=== PATIENT | female | born 1985 | race Caucasian/White ===

== ENCOUNTER 2017-05-21 12:32 | Emergency (ER) | payer MEDICAID, OTHER ==
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
[2017-05-21 15:11] VITALS: BP 127/62
[2017-05-21] MEDS ORDERED: HYDROCODONE/ACETAMINOPHEN 5-325 MG TABLET PO ONE (15:50)
== END 2017-05-21 15:59 | disposition home or self-care (01) ==
LOC: ER 12:32
DX: S93.401A Sprain of unspecified ligament of right ankle, initial encounter (principal); V89.2XXA Person injured in unspecified motor-vehicle accident, traffic, initial encounter; F17.210 Nicotine dependence, cigarettes, uncomplicated
CPT/HCPCS: 99406; 99283; 73610; 73630; L4350

== ENCOUNTER 2017-06-13 08:51 | Emergency (ER) | payer SELFPAY ==
[2017-06-13 09:13] VITALS: BP 101/80
[2017-06-13 09:31] LABS: ABSOLUTE BASOPHILS # (AUTO) 0.1 10^3/uL (0.0-0.2); ABSOLUTE EOSINOPHILS # (AUTO) 0.2 10^3/uL (0.0-0.6); BASOPHILS % (AUTO) 0.8 % (0-2); EOSINOPHILS % (AUTO) 1.3 % (0-6); HEMATOCRIT 46.3 % (36.0-47.0); HEMOGLOBIN 15.4 g/dL (12.0-15.5); LYMPHOCYTES % (AUTO) 22.5 % (13-45); MEAN CORPUSCULAR HEMOGLOBIN 30.5 pg (27.0-33.4); MEAN CORPUSCULAR HGB CONC 33.4 g/dL (32.0-36.0); MEAN CORPUSCULAR VOLUME 91 fl (80-97); MONOCYTES % (AUTO) 7.3 % (3-13); PLATELET COUNT 338 10^3/uL (150-450); RED BLOOD COUNT 5.06 10^6/uL (3.72-5.28); RED CELL DISTRIBUTION WIDTH 15.2 % (11.5-14.0); SEGMENTED NEUTROPHILS % (AUTO) 68.1 % (42-78); TOTAL CELLS COUNTED % (AUTO) 100 %; WHITE BLOOD COUNT 13.2 10^3/uL (4.0-10.5)
[2017-06-13 09:53] LABS: AMORPHOUS SEDIMENT,URINE TRACE /HPF; APPEARANCE,URINE SLIGHTLY-CLOUDY; BILIRUBIN,URINE NEGATIVE (NEGATIVE); COLOR,URINE YELLOW; GLUCOSE, URINE NEGATIVE (NEGATIVE); KETONES,URINE NEGATIVE (NEGATIVE); LEUKOCYTE ESTERASE,URINE NEGATIVE (NEGATIVE); NITRITE,URINE NEGATIVE (NEGATIVE); PROTEIN,URINE NEGATIVE (NEGATIVE); URINE SPECIFIC GRAVITY 1.004; UROBILINOGEN,URINE NEGATIVE mg/dL (<2.0)
[2017-06-13] MEDS ORDERED: KETOROLAC TROMETHAMINE 60 MG/2 ML SDV IM ONE (10:00)
--- NOTE | 2017-06-13 11:11 | RADIOLOGY REPORT (SQ) ---
EXAM DESCRIPTION: U/S NON OB PEL W/DOPPLER COMPLETED DATE/TIME: 06/13/2017 10:48 am REASON FOR STUDY: lower pelvic pain COMPARISON: None. TECHNIQUE: Dynamic and static grayscale images acquired of the pelvis via transabdominal approach an d recorded on PACS. Additional selected color Doppler and spectral images recorded. LIMITATIONS: None. FINDINGS: UTERUS: Contour normal. No mass. ENDOMETRIAL STRIPE: No focal or generalized thickening. No masses. CERVIX: No nabothian cysts. RIGHT OVARY AND DOPPLER: Ovary not visualized. LEFT OVARY AND DOPPLER: Normal size. No worrisome masses. Normal arterial vascular flow without evide nce for torsion. FREE FLUID: Small amount. OTHER: No other significant finding. MEASUREMENTS: UTERUS: 7.6 x 5.0 x 2.9 cm ENDOMETRIAL STRIPE: 6 mm RIGHT OVARY: Not visualized. LEFT OVARY: 2.5 x 1.6 x 1.6 cm IMPRESSION: NORMAL PELVIC ULTRASOUND BY TRANSABDOMINAL TECHNIQUE. TECHNICAL DOCUMENTATION: JOB ID: [id number] [employer]- All Rights Reserved Rev Reading location - IP/workstation name: [email or web address]
[2017-06-13] MEDS ORDERED: ACETAMINOPHEN 325 MG TABLET PO ONE (11:16)
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
== END 2017-06-13 11:27 | disposition left against medical advice (07) ==
LOC: ER 08:51
DX: R10.30 Lower abdominal pain, unspecified (principal); R11.2 Nausea with vomiting, unspecified; F17.200 Nicotine dependence, unspecified, uncomplicated; F12.10 Cannabis abuse, uncomplicated; D72.829 Elevated white blood cell count, unspecified; Z53.29 Procedure and treatment not carried out because of patient's decision for other reasons
CPT/HCPCS: 99284; 36415; 85025; 81025; 81001; 76856; 93976; J1885

== ENCOUNTER 2017-09-10 10:46 | Inpatient (IN) | payer SELFPAY ==
[2017-09-10] MEDS ORDERED: NALOXONE HCL INJ 2 MG/2 ML DISP.SYRIN ONE (10:59)
--- NOTE | 2017-09-10 11:13 | ER Document Report ---
ED General - General Mode of Arrival: Medic Information source: Parent, Emergency Med Personnel TRAVEL OUTSIDE OF THE [place] IN LAST 30 DAYS: No <RASTA CHIU - Last Filed: 09/10/17 18:47> <LISA STYLES - Last Filed: 09/10/17 18:50> - General Chief Complaint: Overdose Stated Complaint: UNRESPONSIVE Time Seen by Provider: 09/10/17 10:55 Notes: Patient is a 32 year old female with schizoaffective disorder and a history of polysubstance abuse presents to the emergency department via EMS after being found unresponsive. EMS states that they found in her trash can empty bottles of Cogentin, Tegretol and Gabapentin. Mother states that the patient has been in and out of [facility] this past month further stating that the patient is seeking help but feels that the medications that she has been previously prescribed is not helping. Patient's Gabapentin bottle was empty after being filled on 07/12/2017 for 120 40 mg tablets, 2 tablets at bedtime. Patient's Cogentin bottle was also empty after being filled on 08/28/2017 for 30 1mg tablets, 1 tablet daily. There are 2 tablets remaining of Carbamazepine, 52 tablets 200 mg. (RASTA CHIU) - Related Data Allergies/Adverse Reactions: No Known Allergies Allergy (Verified 06/13/17 08:56) Past Medical History - General Information source: Parent, Emergency Med Personnel Cannot obtain history due to: Altered mental status - Social History Family History: Reviewed & Not Pertinent Musculoskeletal Medical History: Reports Hx Musculoskeletal Trauma Psychiatric Medical History: Reports: Hx Bipolar Disorder, Hx Depression, Hx Schizophrenia Past Surgical History: Reports: Hx Gynecologic Surgery - Immunizations Hx Diphtheria, Pertussis, Tetanus Vaccination: Yes <RASTA CHIU - Last Filed: 09/10/17 18:47> - Social History Smoking Status: Current Every Day Smoker <LISA STYLES - Last Filed: 09/10/17 18:50> Review of Systems - Review of Systems -: Yes ROS unobtainable due to patient's medical condition <RASTA CHIU - Last Filed: 09/10/17 18:47> Physical Exam <RASTA CHIU - Last Filed: 09/10/17 18:47> <LISA STYLES - Last Filed: 09/10/17 18:50> - Vital signs Vitals: Pulse Ox 98 09/10/17 10:50 - Notes Notes: GENERAL: Minimally responsive. Does not follow commands, will withdraw minimally from noxious stimuli. HEAD: Normocephalic, atraumatic. EYES: Pupils equal, dilated, responds slowly to light. ENT: Oral mucosa dry, tongue midline. NECK: Full range of motion. Supple. Trachea midline. LUNGS: Clear to auscultation bilaterally, no wheezes, rales, or rhonchi. No respiratory distress. HEART: Regular rate and rhythm. No murmurs, gallops, or rubs. ABDOMEN: Soft. Non-distended. Bowel sounds present in all 4 quadrants. EXTREMITIES: Occasional spontaneous movement of all four extremities is seen although no intentional movement. No edema, radial and dorsalis pedis pulses 2/ 4 bilaterally. No cyanosis. NEUROLOGICAL: Does not follow commands. Will withdraw minimally from noxious stimuli, such as IV stick and sternal rub. GCS 6. PSYCH: Does not follow commands. SKIN: Warm, dry, normal turgor. No rashes or lesions noted. (RASTA CHIU) Course - Laboratory Result Diagrams: 09/10/17 10:53 09/10/17 10:53 <RASTA CHIU - Last Filed: 09/10/17 18:47> - Laboratory Result Diagrams: 09/10/17 10:53 09/10/17 10:53 <LISA STYLES - Last Filed: 09/10/17 18:50> - Re-evaluation Re-evalutation: 09/10/17 11:50 GCS is now E-3 V-2 M-5. Will turn head, open mouth and flutter eyes to name being called and shoulder rubbed. (RASTA CHIU) 09/10/17 12:58 Spoke with poison control, would like to have chemistries repeated every 4-6 hours from initial arrival to include liver enzymes, due to combination of medication she is high risk for seizures if she seizes treat with benzos or phenobarbital, repeat EKG approximately 6 hours from the first, otherwise give supportive care which is ongoing. Tegretol level should be checked and if it is elevated then continue to do serial levels until normal. Patient does have evidence of rhabdomyolysis, hydration will continue and Alfred catheter will remain in place. After repeated checks patient is becoming somewhat more alert, GCS is now greater than 9. We will still hold off on intubation. 09/10/17 13:16 Attempted to call the hospitalist, Dr. Neil is putting in a central line, he will call me back. 09/10/17 14:16 CBC shows slight leukocytosis of 13.8, no anemia, venous blood gas shows low pH is 7.28, chemistries show elevated potassium at 5.2 but no EKG changes, AST and ALT are somewhat elevated at 157 and 252 respectively, CK-MB elevated at 7204 consistent with rhabdo, urinalysis shows large blood on the dipstick but only 1 RBC again consistent with rhabdomyolysis. Acetaminophen, salicylates and alcohol are all undetectable. CT scan of the head shows no acute process. Tegretol level was elevated and will continue to be monitored. Patient continues to be hydrated, and outputting urine well. Patient has had repeated episodes of emesis which resolved with Zofran, patient while still not following commands will wake up and lean herself forward to vomit, she does awaken to verbal stimuli. GCS is 11. Discussed patient with Dr. Fair, agrees to admit to the ICU. (LISA STYLES) - Vital Signs Vital signs: Temp Pulse Resp BP Pulse Ox 98.6 F 111 H 20 131/102 H 96 09/10/17 18:37 09/10/17 18:37 09/10/17 18:37 09/10/17 18:37 09/10/17 18:37 - Laboratory Laboratory results interpreted by me: 09/10/17 09/10/17 09/10/17 10:53 10:53 10:53 WBC 13.8 H RDW 14.4 H Seg Neutrophils % 89.3 H Lymphocytes % 5.5 L Absolute Neutrophils 12.3 H VBG pH 7.28 L Potassium 5.2 H Glucose 124 H AST 157 H ALT 252 H Creatine Kinase CK-MB (CK-2) Urine Glucose (UA) Urine Blood Salicylates < 1.0 L Acetaminophen < 10 L Carbamazepine 09/10/17 09/10/17 09/10/17 10:53 10:53 10:53 WBC RDW Seg Neutrophils % Lymphocytes % Absolute Neutrophils VBG pH Potassium Glucose AST ALT Creatine Kinase 7204 H CK-MB (CK-2) 26.70 H Urine Glucose (UA) Urine Blood Salicylates Acetaminophen Carbamazepine > 20.0 H* 09/10/17 11:20 WBC RDW Seg Neutrophils % Lymphocytes % Absolute Neutrophils VBG pH Potassium Glucose AST ALT Creatine Kinase CK-MB (CK-2) Urine Glucose (UA) 50 H Urine Blood LARGE H Salicylates Acetaminophen Carbamazepine - EKG Interpretation by Me Additional EKG results interpreted by me: 09/10/17 14:19 EKG shows sinus rhythm at a rate of 92, normal axis, normal intervals, no ST segment elevations or depressions, isolated T-wave inversions noted in V2 per my interpretation. (LISA STYLES) Critical Care Note - Critical Care Note Total time excluding time spent on procedures (mins): 80 <LISA STYLES - Last Filed: 09/10/17 18:50> Discharge <RASTA CHIU - Last Filed: 09/10/17 18:47> - Discharge Admitting Provider: [facility] Unit Admitted: ICU <LISA STYLES - Last Filed: 09/10/17 18:50> - Discharge Clinical Impression: Suicide attempt Overdose Qualifiers: Encounter type: initial encounter Injury intent: intentional self-harm Qualified Code(s): T50.902A - Poisoning by unspecified drugs, medicaments and biological substances, intentional self-harm, initial encounter Gabapentin overdose Qualifiers: Encounter type: initial encounter Injury intent: intentional self-harm Qualified Code(s): T42.6X2A - Poisoning by other antiepileptic and sedative- hypnotic drugs, intentional self-harm, initial encounter Rhabdomyolysis Qualifiers: Rhabdomyolysis type: non-traumatic Qualified Code(s): M62.82 - Rhabdomyolysis Intentional carbamazepine overdose Qualifiers: Encounter type: initial encounter Qualified Code(s): T42.1X2A - Poisoning by iminostilbenes, intentional self-harm, initial encounter Condition: Critical Disposition: ADMITTED INPATIENT Scribe Attestation: 09/10/17 18:49 I personally performed the services described in the documentation, reviewed and edited the documentation which was dictated to the scribe in my presence, and it accurately records my words and actions. (LISA STYLES) Scribe Documentation - Scribe Written by Kayleenibe:: Koffi Truong, 09/10/2017 11:53 acting as scribe for :: Janice <RASTA CHIU - Last Filed: 09/10/17 18:47>
[2017-09-10] MEDS ORDERED: NORMAL SALINE 1000 ML 1,000 ML IV ONE ×3 (11:22→12:31)
[2017-09-10] MEDS ORDERED: ETOMIDATE INJ/PF 20 MG/10 ML SDV IV ONE (11:30)
[2017-09-10 11:31] LABS: ABSOLUTE LYMPHOCYTES (AUTO) 0.8 10^3/uL (0.5-4.7); ABSOLUTE MONOCYTES (AUTO) 0.7 10^3/uL (0.1-1.4); ABSOLUTE NEUT (AUTO) 12.3 10^3/uL (1.7-8.2); BASOPHILS % (AUTO) 0.2 % (0-2); HEMATOCRIT 40.3 % (36.0-47.0); HEMOGLOBIN 13.4 g/dL (12.0-15.5); LYMPHOCYTES % (AUTO) 5.5 % (13-45); MEAN CORPUSCULAR HEMOGLOBIN 30.7 pg (27.0-33.4); MEAN CORPUSCULAR HGB CONC 33.2 g/dL (32.0-36.0); MEAN CORPUSCULAR VOLUME 93 fl (80-97); PLATELET COUNT 196 10^3/uL (150-450); RED BLOOD COUNT 4.35 10^6/uL (3.72-5.28); RED CELL DISTRIBUTION WIDTH 14.4 % (11.5-14.0); SEGMENTED NEUTROPHILS % (AUTO) 89.3 % (42-78); TOTAL CELLS COUNTED % (AUTO) 100 %; WHITE BLOOD COUNT 13.8 10^3/uL (4.0-10.5)
[2017-09-10] MEDS ORDERED: VECURONIUM BROMIDE INJ 10 MG VIAL IV ONE (11:31)
[2017-09-10 11:39] LABS: ALANINE AMINOTRANSFERASE 252 U/L (9-52); ALKALINE PHOSPHATASE 54 U/L (38-126); ANION GAP 13 (5-19); ASPARTATE AMINO TRANSFERASE 157 U/L (14-36); BILIRUBIN,DIRECT 0.2 mg/dL (0.0-0.4); BILIRUBIN,TOTAL 0.2 mg/dL (0.2-1.3); BLOOD UREA NITROGEN 14 mg/dL (7-20); CARBON DIOXIDE 25 mmol/L (22-30); CHLORIDE 102 mmol/L (98-107); GLUCOSE 124 mg/dL (75-110); POTASSIUM 5.2 mmol/L (3.6-5.0); SODIUM 139.9 mmol/L (137-145); TOTAL PROTEIN 6.9 g/dL (6.3-8.2)
[2017-09-10 11:41] LABS: ACETAMINOPHEN < 10 ug/mL (10-30); ALCOHOL < 10 mg/dL (NONE DETECTED); SALICYLATE < 1.0 mg/dL (2.0-20.0)
[2017-09-10 11:42] LABS: VENOUS BLOOD BASE EXCESS -6.3 mmol/L; VENOUS BLOOD HCO3 20.1 mmol/L (20-32); VENOUS BLOOD PH 7.28 (7.30-7.42)
--- NOTE | 2017-09-10 11:57 | RADIOLOGY REPORT (SQ) ---
EXAM DESCRIPTION: CT HEAD WITHOUT COMPLETED DATE/TIME: 09/10/2017 11:45 am REASON FOR STUDY: unresponsive COMPARISON: CT brain 11/21/2008 TECHNIQUE: Axial images acquired through the brain without intravenous contrast. Images reviewed wi th bone, brain and subdural windows. Additional sagittal and coronal reconstructions were generated. Images stored on PACS. All CT scanners at this facility use dose modulation, iterative reconstruction, and/or weight based d osing when appropriate to reduce radiation dose to as low as reasonably achievable (ALARA). [facility]: Dose Right [facility]: CareDose [facility]: Dose Right [facility]: Teradose 4D [facility]: Adynxx RADIATION DOSE: CT Rad equipment meets quality standard of care and radiation dose reduction techniq ues were employed. CTDIvol: 53.2 mGy. DLP: 1124 mGy-cm. mGy. LIMITATIONS: None. FINDINGS: VENTRICLES: Normal size and contour. CEREBRUM: No masses. No hemorrhage. No midline shift. No evidence for acute infarction. Normal gra y/white matter differentiation. No areas of low density in the white matter. CEREBELLUM: No masses. No hemorrhage. No alteration of density. No evidence for acute infarction. EXTRAAXIAL SPACES: No fluid collections. No masses. ORBITS AND GLOBE: No intra- or extraconal masses. Normal contour of globe without masses. CALVARIUM: No fracture. PARANASAL SINUSES: No fluid or mucosal thickening. SOFT TISSUES: No mass or hematoma. OTHER: No other significant finding. IMPRESSION: NORMAL BRAIN CT WITHOUT CONTRAST. EVIDENCE OF ACUTE STROKE: NO. COMMENT: Quality ID # [id number]: Final reports with documentation of one or more dose reduction techniques (e.g., Automated exposure control, adjustment of the mA and/or kV according to patient size, use of iterative reconstruction technique) TECHNICAL DOCUMENTATION: JOB ID: [id number] [employer]- All Rights Reserved Reading location - IP/workstation name: [email or web address]
[2017-09-10 12:01] LABS: AMORPHOUS SEDIMENT,URINE TRACE /HPF; APPEARANCE,URINE TURBID; BILIRUBIN,URINE NEGATIVE (NEGATIVE); GLUCOSE, URINE 50 mg/dL (NEGATIVE); KETONES,URINE NEGATIVE (NEGATIVE); LEUKOCYTE ESTERASE,URINE NEGATIVE (NEGATIVE); NITRITE,URINE NEGATIVE (NEGATIVE); PROTEIN,URINE NEGATIVE (NEGATIVE); URINE SPECIFIC GRAVITY 1.023; UROBILINOGEN,URINE NEGATIVE mg/dL (<2.0)
[2017-09-10 12:02] LABS: COLOR,URINE DARK YELLOW
[2017-09-10] MEDS ORDERED: ONDANSETRON HCL INJ/PF 4 MG/2 ML SDV IV ONE ×2 (12:18→13:56)
[2017-09-10] MEDS ORDERED: ONDANSETRON HCL INJ/PF 4 MG/2 ML SDV ONE (12:18)
--- NOTE | 2017-09-10 13:18 | EKG REPORT ---
SEVERITY:- BORDERLINE ECG - SINUS RHYTHM PROBABLE LEFT ATRIAL ABNORMALITY : Confirmed by: Cherrie Isbell MD 10-Sep-2017 13:17:52
[2017-09-10] MEDS ORDERED: LORAZEPAM INJ 2 MG/1 ML VIAL ONE (13:52)
[2017-09-10] MEDS ORDERED: LORAZEPAM INJ 2 MG/1 ML VIAL IV ONE (13:56)
[2017-09-10] MEDS ORDERED: ONDANSETRON HCL INJ/PF 4 MG/2 ML SDV IV PRN (15:04)
[2017-09-10 15:43] LABS: URINE AMPHETAMINES SCREEN NEGATIVE; URINE BARBITURATES SCREEN NEGATIVE; URINE BENZODIAZEPINES SCREEN NEGATIVE; URINE COCAINE SCREEN NEGATIVE; URINE MARIJUANA (THC) SCREEN NEGATIVE; URINE METHADONE SCREEN NEGATIVE; URINE PHENCYCLIDINE SCREEN NEGATIVE
--- NOTE | 2017-09-10 15:47 | PSYCHOLOGICAL NOTE ---
Psych Note - Psych Note Psych Note: Reason for consult: overdose Patient is a 32 year old female with schizoaffective disorder presents to the emergency department via EMS after being found unresponsive. EMS states that they found in her trash can empty bottles of Cogentin, Tegretol and Gabapentin. Patient is currently unable to engage in evaluation. While patient is not intubated, patient is altered mental status Patient's mother, Cindy, discloses the patient is diagnosed schizoaffective bipolar type. She states that she has been inpatient 2 times this month each time being held for 1 week each. She reports that she knows the patient has been very frustrated with medications not working. Last night she was given her medications by her grandmother and went to bed. She disclosed that grandmother reports when she went to sleep the bedroom door was open however this morning when she got up the bedroom door was closed at which point they entered the room. She discloses they were unable to wake patient in a "bunch of old med bottles were in the trash." She reports the patient was discharged on Sunday from [facility] after her second 1 week admission. Diagnosis 295.70 (F25.0) schizoaffective disorder; bipolar type per history provided by mother Impression\\plan: Patient is recommended for IVC. It currently appears the patient intentionally overdosed on both medications after being frustrated with medication changes in medication not working. Patient was just released from [facility] on Sunday. Patient has been admitted. Patient will be reevaluated. Dr. Peres was consulted and the care management this patient; attending physician is agreement with her conditions and disposition
[2017-09-10] MEDS: NORMAL SALINE 1000 ML 1,000 ML IV PRN ×2 (16:20→20:46)
--- NOTE | 2017-09-10 17:39 | PDOC H&P ---
History of Present Illness Admission Date/PCP: 09/10/17 15:00 Patient complains of: Polysubstance overdose History of Present Illness: REGULO CASTAÑEDA is a 32 year old female with a past medical history of schizoaffective disorder and depression who was brought in by EMS after being found unresponsive. Patient's mother is in the bedside. According to the mother, patient was recently discharged from [facility] inpatient psych. Patient was diagnosed with schizoaffective disorder and her medication regimen has been recently adjusted. Patient reportedly improved after her medication changes and was discharged from [facility] 3 days ago. Patient's mom says that she stayed with her grandmom last night. She did report that patient had symptoms of hallucination in the past 2 days. This morning, patient was found unresponsive in her room. For empty bottles with her phone in the room including bottles for carbamazepine, duloxetine, benztropine in Neurontin. Patient was noted to be lethargic and was brought by EMS to the ER. In the ER, patient was initially noted to have a GCS of 6. There was initial plan to intubate her but she started waking up but was confused and agitated. Her GCS improved to 10. She vomited but was able to protect her airway hence intubation in the ED was deferred. Past Medical History Cardiac Medical History: Denies: Coronary Artery Disease, Myocardial Infarction, Hypertension Pulmonary Medical History: Denies: Asthma, Bronchitis, Chronic Obstructive Pulmonary Disease (COPD), Pneumonia Neurological Medical History: Denies: Seizures Musculoskeltal Medical History: Denies: Arthritis Psychiatric Medical History: Reports: Bipolar Disorder, Depression Hematology: Denies: Anemia Social History Smoking Status: Unknown if Ever Smoked Frequency of Alcohol Use: None Hx Recreational Drug Use: Yes Drugs: None Hx Prescription Drug Abuse: No Family History Family History: Reviewed & Not Pertinent Medication/Allergy Home Medications: Buspirone HCl [Buspar 10 mg Tablet] 10 mg PO Q12 09/10/17 Olanzapine [Zyprexa 5 mg Tablet] 5 mg PO QAM 09/10/17 Olanzapine [Zyprexa] 15 mg PO QHS 09/10/17 Allergies/Adverse Reactions: No Known Allergies Allergy (Verified 06/13/17 08:56) Review of Systems ROS unobtainable: Due to mental status Physical Exam Vital Signs: Temp Pulse Resp BP Pulse Ox 98.9 F 24 H 117/89 H 93 08/06/18 17:02 09/10/17 17:02 09/10/17 16:00 09/10/17 17:02 Intake & Output 09/09/17 09/10/17 09/11/17 06:59 06:59 06:59 Intake Total 1000 Balance 1000 General appearance: PRESENT: other - Patient appears lethargic but arousable. Head exam: PRESENT: atraumatic, normocephalic Eye exam: PRESENT: other - No nystagmus, dilated but slightly reactive pupils bilaterally Mouth exam: PRESENT: moist, tongue midline Neck exam: ABSENT: carotid bruit, JVD, lymphadenopathy, thyromegaly Respiratory exam: PRESENT: clear to auscultation jordan. ABSENT: rales, rhonchi, wheezes Cardiovascular exam: PRESENT: RRR Pulses: PRESENT: normal dorsalis pedis pul GI/Abdominal exam: PRESENT: normal bowel sounds, soft. ABSENT: distended, guarding, mass, organolmegaly, rebound, tenderness Rectal exam: PRESENT: deferred Extremities exam: PRESENT: full ROM. ABSENT: calf tenderness, clubbing, pedal edema Neurological exam: PRESENT: other - Patient is arousable, noncoherent, unable to follow instructions. No apparent unilateral weakness. Results Impressions: Head CT 09/10/17 11:22 IMPRESSION: NORMAL BRAIN CT WITHOUT CONTRAST. EVIDENCE OF ACUTE STROKE: NO. Assessment & Plan - Diagnosis (1) Acute encephalopathy Is this a current diagnosis for this admission?: Yes Plan: Patient has acute toxic encephalopathy likely secondary to ingestion of multiple medications including duloxetine, carbamazepine, benztropine and Neurontin. Poison control was consulted by ER provider. Carbamazepine toxicity confers increased risk for seizures. Patient will be continuously monitored for seizure. Ativan for agitation 1 mg every 4 as needed. Monitor EKGs every 6-8 hours for carbamazepine (Tegretol) and TCA (duloxetine) toxicity. Watch out for QRS prolongation. Plan is to administer bicarbonate ( 100-150 meqs) if QRS>100 ms. Check Tegretol level every 8 hours. (2) Rhabdomyolysis Qualifiers: Rhabdomyolysis type: non-traumatic Qualified Code(s): M62.82 - Rhabdomyolysis Is this a current diagnosis for this admission?: Yes Plan: Patient's CK significantly elevated at 7204. She has received 4 L of fluid bolus in the ER. Continue normal saline at 150 cc/h. (3) Schizoaffective disorder Is this a current diagnosis for this admission?: Yes Plan: Cycle also be consulted for further evaluation and recommendations. - Time Time Spent: 50 to 70 Minutes Critical Time spent with patient: 25-34 minutes - Inpatient Certification Medical Necessity: Need Close Monitoring Due to Risk of Patient Decompensation, Need For IV Fluids, Need for Neurological Checks, Risk of Complication if Not Cared For in Hospital
[2017-09-10] MEDS: LORAZEPAM INJ 2 MG/1 ML VIAL IV PRN (20:43)
[2017-09-10] MEDS: HEPARIN SOD (PORCINE) 5,000 UNIT/ML 1 ML SYRINGE SUBCUT SCH (22:56)
[2017-09-11] MEDS: LORAZEPAM INJ 2 MG/1 ML VIAL IV PRN ×3 (01:39→22:37)
[2017-09-11] MEDS: NORMAL SALINE 1000 ML 1,000 ML IV PRN ×4 (05:00→21:31)
[2017-09-11] MEDS: HEPARIN SOD (PORCINE) 5,000 UNIT/ML 1 ML SYRINGE SUBCUT SCH ×3 (05:02→21:32)
--- NOTE | 2017-09-11 09:28 | RADIOLOGY REPORT (SQ) ---
EXAM DESCRIPTION: CHEST SINGLE VIEW COMPLETED DATE/TIME: 09/11/2017 9:18 am REASON FOR STUDY: leucocytosis. wheezing bl bases. COMPARISON: None. EXAM PARAMETERS: NUMBER OF VIEWS: One view. TECHNIQUE: Single frontal radiographic view of the chest acquired. RADIATION DOSE: NA LIMITATIONS: None. FINDINGS: LUNGS AND PLEURA: No opacities, masses or pneumothorax. No pleural effusion. MEDIASTINUM AND HILAR STRUCTURES: No masses. Contour normal. HEART AND VASCULAR STRUCTURES: Heart normal in size. Normal vasculature. BONES: No acute findings. HARDWARE: None in the chest. OTHER: No other significant finding. IMPRESSION: NO ACUTE RADIOGRAPHIC FINDING IN THE CHEST. TECHNICAL DOCUMENTATION: JOB ID: [id number] [employer]- All Rights Reserved Reading location - IP/workstation name: [email or web address]
[2017-09-11] MEDS: LORAZEPAM INJ 2 MG/1 ML VIAL IV SCH ×6 (09:57→20:25)
[2017-09-11 10:32] LABS: ABSOLUTE EOSINOPHILS # (AUTO) 0.1 10^3/uL (0.0-0.6); ABSOLUTE LYMPHOCYTES (AUTO) 2.4 10^3/uL (0.5-4.7); ABSOLUTE MONOCYTES (AUTO) 0.9 10^3/uL (0.1-1.4); ABSOLUTE NEUT (AUTO) 5.5 10^3/uL (1.7-8.2); BASOPHILS % (AUTO) 0.5 % (0-2); EOSINOPHILS % (AUTO) 0.6 % (0-6); HEMATOCRIT 29.9 % (36.0-47.0); LYMPHOCYTES % (AUTO) 27.3 % (13-45); MEAN CORPUSCULAR HEMOGLOBIN 31.1 pg (27.0-33.4); MEAN CORPUSCULAR HGB CONC 34.3 g/dL (32.0-36.0); MEAN CORPUSCULAR VOLUME 91 fl (80-97); MONOCYTES % (AUTO) 9.7 % (3-13); PLATELET COUNT 157 10^3/uL (150-450); RED BLOOD COUNT 3.29 10^6/uL (3.72-5.28); RED CELL DISTRIBUTION WIDTH 14.2 % (11.5-14.0); SEGMENTED NEUTROPHILS % (AUTO) 61.9 % (42-78); TOTAL CELLS COUNTED % (AUTO) 100 %; WHITE BLOOD COUNT 8.9 10^3/uL (4.0-10.5)
[2017-09-11 10:32] LABS: APPEARANCE,URINE CLEAR; BILIRUBIN,URINE NEGATIVE (NEGATIVE); COLOR,URINE STRAW; GLUCOSE, URINE NEGATIVE (NEGATIVE); KETONES,URINE NEGATIVE (NEGATIVE); LEUKOCYTE ESTERASE,URINE NEGATIVE (NEGATIVE); NITRITE,URINE NEGATIVE (NEGATIVE); PROTEIN,URINE NEGATIVE (NEGATIVE); URINE SPECIFIC GRAVITY 1.005; UROBILINOGEN,URINE NEGATIVE mg/dL (<2.0)
[2017-09-11 10:33] LABS: ARTERIAL BLOOD BASE EXCESS 1.5 mmol/L; ARTERIAL BLOOD HCO3 26.5 mmol/L (20-26); ARTERIAL BLOOD O2 SATURATION 99.1 % (94-98); ARTERIAL BLOOD PCO2 43.3 mmHg (35-45); ARTERIAL BLOOD PH 7.41 (7.35-7.45); ARTERIAL BLOOD PO2 161.5 mmHg (80-100); ARTERIAL BLOOD TOTAL CO2 27.9 mmol/L (21-25)
[2017-09-11 10:34] LABS: HEMOGLOBIN 10.3 g/dL (12.0-15.5)
[2017-09-11 10:35] LABS: ARTERIAL BLOOD FIO2 2L
[2017-09-11 10:43] LABS: PARTIAL THROMBOPLASTIN TIME 31.9 SEC (23.5-35.8)
[2017-09-11 10:46] LABS: D-DIMER 1.36 ug/mL (0.00-0.50)
[2017-09-11 10:50] LABS: ALANINE AMINOTRANSFERASE 253 U/L (9-52); ALBUMIN 2.5 g/dL (3.5-5.0); ALKALINE PHOSPHATASE 50 U/L (38-126); ANION GAP 6 (5-19); ASPARTATE AMINO TRANSFERASE 262 U/L (14-36); BILIRUBIN,DIRECT 0.1 mg/dL (0.0-0.4); BILIRUBIN,TOTAL 0.4 mg/dL (0.2-1.3); BLOOD UREA NITROGEN 6 mg/dL (7-20); CALCIUM 7.8 mg/dL (8.4-10.2); CARBON DIOXIDE 26 mmol/L (22-30); CHLORIDE 107 mmol/L (98-107); GLUCOSE 81 mg/dL (75-110); LIPASE 26.6 U/L (23-300); SODIUM 138.8 mmol/L (137-145); TOTAL PROTEIN 4.8 g/dL (6.3-8.2)
[2017-09-11 10:54] LABS: POTASSIUM 3.4 mmol/L (3.6-5.0)
[2017-09-11 10:55] LABS: NT PRO BNP 1280 pg/mL (<125)
[2017-09-11 10:58] LABS: TROPONIN I < 0.012 ng/mL
[2017-09-11 11:06] LABS: FREE T4 (FREE THYROXINE) 1.16 ng/dL (0.78-2.19)
[2017-09-11 11:07] LABS: CREATINE KINASE 7777 U/L (30-135)
[2017-09-11 11:20] LABS: THYROID STIMULATING HORMONE 1.25 uIU/mL (0.47-4.68)
[2017-09-11 17:59] LABS: ALANINE AMINOTRANSFERASE 239 U/L (9-52); ALBUMIN 2.7 g/dL (3.5-5.0); ALKALINE PHOSPHATASE 53 U/L (38-126); ANION GAP 8 (5-19); ASPARTATE AMINO TRANSFERASE 239 U/L (14-36); BILIRUBIN,DIRECT 0.2 mg/dL (0.0-0.4); BILIRUBIN,TOTAL 0.4 mg/dL (0.2-1.3); BLOOD UREA NITROGEN 7 mg/dL (7-20); CALCIUM 8.3 mg/dL (8.4-10.2); CARBON DIOXIDE 24 mmol/L (22-30); CHLORIDE 109 mmol/L (98-107); GLUCOSE 78 mg/dL (75-110); POTASSIUM 3.7 mmol/L (3.6-5.0); SODIUM 140.8 mmol/L (137-145); TOTAL PROTEIN 5.1 g/dL (6.3-8.2)
[2017-09-11 18:09] LABS: TROPONIN I < 0.012 ng/mL
--- NOTE | 2017-09-11 22:35 | EKG REPORT ---
SEVERITY:- NORMAL ECG - SINUS RHYTHM : Confirmed by: Cherrie Isbell MD 11-Sep-2017 22:34:44
[2017-09-12 00:36] LABS: ALBUMIN 2.7 g/dL (3.5-5.0); ANION GAP 9 (5-19); BLOOD UREA NITROGEN 7 mg/dL (7-20); CARBON DIOXIDE 23 mmol/L (22-30); CHLORIDE 110 mmol/L (98-107); GLUCOSE 72 mg/dL (75-110); POTASSIUM 3.5 mmol/L (3.6-5.0); SODIUM 141.7 mmol/L (137-145); TOTAL PROTEIN 5.1 g/dL (6.3-8.2)
[2017-09-12 00:37] LABS: ALANINE AMINOTRANSFERASE 228 U/L (9-52); ALKALINE PHOSPHATASE 57 U/L (38-126); ASPARTATE AMINO TRANSFERASE 236 U/L (14-36); BILIRUBIN,DIRECT 0.2 mg/dL (0.0-0.4); BILIRUBIN,TOTAL 0.5 mg/dL (0.2-1.3)
[2017-09-12 00:51] LABS: TROPONIN I < 0.012 ng/mL
[2017-09-12] MEDS: LORAZEPAM INJ 2 MG/1 ML VIAL IV PRN ×2 (00:59→22:27)
[2017-09-12 04:16] LABS: ALANINE AMINOTRANSFERASE 208 U/L (9-52); ALBUMIN 2.6 g/dL (3.5-5.0); ALKALINE PHOSPHATASE 55 U/L (38-126); ANION GAP 9 (5-19); ASPARTATE AMINO TRANSFERASE 222 U/L (14-36); BILIRUBIN,DIRECT 0.2 mg/dL (0.0-0.4); BILIRUBIN,TOTAL 0.5 mg/dL (0.2-1.3); BLOOD UREA NITROGEN 8 mg/dL (7-20); CALCIUM 8.1 mg/dL (8.4-10.2); CARBON DIOXIDE 24 mmol/L (22-30); CHLORIDE 111 mmol/L (98-107); GLUCOSE 72 mg/dL (75-110); POTASSIUM 3.5 mmol/L (3.6-5.0); SODIUM 143.5 mmol/L (137-145); TOTAL PROTEIN 5.1 g/dL (6.3-8.2)
[2017-09-12] MEDS: HEPARIN SOD (PORCINE) 5,000 UNIT/ML 1 ML SYRINGE SUBCUT SCH ×3 (05:47→22:27)
[2017-09-12] MEDS: NORMAL SALINE 1000 ML 1,000 ML IV PRN ×2 (05:47→12:47)
[2017-09-12 08:53] LABS: ABSOLUTE BASOPHILS # (AUTO) 0.1 10^3/uL (0.0-0.2); ABSOLUTE EOSINOPHILS # (AUTO) 0.2 10^3/uL (0.0-0.6); ABSOLUTE LYMPHOCYTES (AUTO) 2.2 10^3/uL (0.5-4.7); ABSOLUTE MONOCYTES (AUTO) 0.8 10^3/uL (0.1-1.4); ABSOLUTE NEUT (AUTO) 4.1 10^3/uL (1.7-8.2); BASOPHILS % (AUTO) 1.1 % (0-2); EOSINOPHILS % (AUTO) 3.1 % (0-6); HEMATOCRIT 32.5 % (36.0-47.0); HEMOGLOBIN 11.1 g/dL (12.0-15.5); LYMPHOCYTES % (AUTO) 30.1 % (13-45); MEAN CORPUSCULAR HEMOGLOBIN 31.4 pg (27.0-33.4); MEAN CORPUSCULAR HGB CONC 34.2 g/dL (32.0-36.0); MEAN CORPUSCULAR VOLUME 92 fl (80-97); MONOCYTES % (AUTO) 11.1 % (3-13); PLATELET COUNT 175 10^3/uL (150-450); RED BLOOD COUNT 3.54 10^6/uL (3.72-5.28); RED CELL DISTRIBUTION WIDTH 13.8 % (11.5-14.0); SEGMENTED NEUTROPHILS % (AUTO) 54.6 % (42-78); TOTAL CELLS COUNTED % (AUTO) 100 %; WHITE BLOOD COUNT 7.4 10^3/uL (4.0-10.5)
[2017-09-12 09:06] LABS: ALANINE AMINOTRANSFERASE 205 U/L (9-52); ALBUMIN 2.8 g/dL (3.5-5.0); ALKALINE PHOSPHATASE 58 U/L (38-126); ANION GAP 10 (5-19); ASPARTATE AMINO TRANSFERASE 222 U/L (14-36); BILIRUBIN,DIRECT 0.2 mg/dL (0.0-0.4); BILIRUBIN,TOTAL 0.5 mg/dL (0.2-1.3); BLOOD UREA NITROGEN 9 mg/dL (7-20); CALCIUM 8.5 mg/dL (8.4-10.2); CARBON DIOXIDE 22 mmol/L (22-30); CHLORIDE 110 mmol/L (98-107); GLUCOSE 66 mg/dL (75-110); POTASSIUM 3.6 mmol/L (3.6-5.0); SODIUM 141.9 mmol/L (137-145); TOTAL PROTEIN 5.4 g/dL (6.3-8.2)
--- NOTE | 2017-09-12 11:38 | EKG REPORT ---
SEVERITY:- NORMAL ECG - SINUS RHYTHM : Confirmed by: Cherrie Isbell MD 12-Sep-2017 11:36:47
--- NOTE | 2017-09-12 11:38 | EKG REPORT ---
SEVERITY:- NORMAL ECG - SINUS RHYTHM : Confirmed by: Cherrie Isbell MD 12-Sep-2017 11:36:44
--- NOTE | 2017-09-12 12:10 | PSYCHOLOGICAL NOTE ---
Psych Note - Psych Note Psych Note: Reason for consult: overdose Consent permissions: Patient's mother and grandmother at bedside per patient's request Patient is a 32 year old female with schizoaffective disorder presents to the emergency department via EMS after being found unresponsive. EMS states that they found in her trash can empty bottles of Cogentin, Tegretol and Gabapentin. Patient disclosed that she remembers taking medication because she has been having a difficult time. She states she is very frustrated. She discloses that she requested her medications to not have any narcotics or opiates based and felt like she was doing better and reports she will never to smoke marijuana again. Patient expresses continued despondency; "I have tried... Nothing works... I should just or lay in this bed forever." Patient's mother and grandmother spoke with clinician also. They reports that the patient's 4-year-old daughter is in the care of the patient's mother and has been for a while now. She reports that when the patient was discharged from [facility] she was going back and forth between the 2 homes (her mother's home and her grandmother's home). They disclosed the patient had mentioned many times that she does not feel the medications are working and she felt off and not herself. They disclose that the patient's daughter was not at the grandmother's home the evening the patient overdosed. Patient is alert and orientated to person, place, time and circumstance. Mood is dysphoric and at times tearful affect. Patient endorses suicidal ideations stating she intentionally overdosed. Patient denies homicidal ideation. Delusions are absent and patient is no longer demonstrating responding to internal stimuli. Patient thought processes are still slightly effected and are disorganzed at times; however, overall she is able to participate in an organized linear conversation. Patient has good eye contact. Attention and concentration are poor. Insight, judgment, impulse control is currently poor. Clinician notes patient is currently in soft restraints. Diagnosis 295.70 (F25.0) schizoaffective disorder; bipolar type per history provided by mother Impression\\plan: Patient is recommended to continue under IVC. The patient intentionally overdosed on medications after being frustrated with medication changes and medication not working. Patient is clearly still having difficulty with some cognitive processing. Patient was just released from [facility] on Sunday. Patient will be reevaluated. Dr. Peres was consulted and the care management this patient; attending physician is agreement with her conditions and disposition
--- NOTE | 2017-09-12 14:36 | RADIOLOGY REPORT (SQ) ---
EXAM DESCRIPTION: CTA CHEST COMPLETED DATE/TIME: 09/12/2017 2:17 pm REASON FOR STUDY: pos d-dimer/ AMS. COMPARISON: None. TECHNIQUE: CT scan of the chest performed using helical scanning technique with dynamic intravenous contrast injection. Images reviewed with lung, soft tissue and bone windows. Reconstructed coronal and sagittal MPR images reviewed. Additional 3 dimensional post-processing performed to develop Maximal Intensity Projection images (IL P). All images stored on PACS. All CT scanners at this facility use dose modulation, iterative reconstruction, and/or weight based d osing when appropriate to reduce radiation dose to as low as reasonably achievable (ALARA). [facility]: Dose Right [facility]: CareDose [facility]: Dose Right [facility]: Teradose 4D [facility]: [employer] CONTRAST TYPE AND DOSE: contrast/concentration: Isovue 350.00 mg/ml; Total Contrast Delivered: 61.0 ml; Total Saline Delivered: 106.0 ml Contrast bolus optimized for the pulmonary arteries. Not diagnostic for the aorta. RENAL FUNCTION: BUN 4 creatinine 0.58. RADIATION DOSE: CT Rad equipment meets quality standard of care and radiation dose reduction techniq ues were employed. CTDIvol: 6.0 - 11.3 mGy. DLP: 223 mGy-cm. . LIMITATIONS: None. FINDINGS: LUNGS AND PLEURA: Linear densities in the posterior lung bases. Minimal left pleural effu yolis. AORTA AND GREAT VESSELS: No aneurysm. Contrast bolus not optimized for the aorta. HEART: No pericardial effusion. No significant coronary artery calcifications. PULMONARY ARTERIES: No emboli visualized in the main pulmonary arteries or the segmental branches. HILAR AND MEDIASTINAL STRUCTURES: No identified masses or abnormal nodes. HARDWARE: None in the chest. UPPER ABDOMEN: No significant findings. Limited exam. THYROID AND OTHER SOFT TISSUES: No masses. No adenopathy. BONES: No acute or significant finding. 3D MIPS: Confirm above findings. OTHER: No other significant finding. IMPRESSION: 1. NORMAL CTA OF THE CHEST. NO PULMONARY EMBOLI. 2. LINEAR ATELECTASIS IN THE POSTERIOR LUNG BASES. MINIMAL LEFT PLEURAL EFFUSION. COMMENT: Quality ID # [id number]: Final reports with documentation of one or more dose reduction techniques (e.g., Automated exposure control, adjustment of the mA and/or kV according to patient size, use of iterative reconstruction technique) TECHNICAL DOCUMENTATION: JOB ID: [id number] [employer]- All Rights Reserved Reading location - IP/workstation name: [email or web address]
--- NOTE | 2017-09-12 18:05 | PDOC PROGRESS REPORT ---
Subjective Progress Note for:: 09/11/17 Subjective:: pt is a 32 y/o female admitted with intoxication of her mental health meds . pt is in four point restraint for safety. pt is arousable but somnolent. Reason For Visit: ACUTE TOIC ENCEPHALOPATHY Physical Exam Vital Signs: Temp Pulse Resp BP Pulse Ox 98.8 F 109 H 26 H 117/81 95 09/11/17 19:23 09/11/17 06:00 09/11/17 18:00 09/11/17 16:21 09/11/17 18:00 Intake & Output 09/10/17 09/11/17 09/12/17 06:59 06:59 06:59 Intake Total 2665 1745 Output Total 2075 2350 Balance 590 -605 Weight 163 lb 5.8 oz 163 lb 5.8 oz General appearance: PRESENT: other Exam: in restraints. Head exam: PRESENT: atraumatic, normocephalic Eye exam: PRESENT: EOMI Ear exam: PRESENT: normal external ear exam Respiratory exam: PRESENT: clear to auscultation jordan. ABSENT: accessory muscle use Cardiovascular exam: PRESENT: RRR GI/Abdominal exam: PRESENT: soft. ABSENT: distended Neurological exam: PRESENT: altered Focused psych exam: PRESENT: restlessness Results Laboratory Results: 09/11/17 10:10 09/11/17 17:00 09/11/17 09/11/17 09/11/17 09:55 09:55 10:10 WBC 8.9 RBC 3.29 L Hgb 10.3 L D Hct 29.9 L MCV 91 MCH 31.1 MCHC 34.3 RDW 14.2 H Plt Count 157 Seg Neutrophils % 61.9 Lymphocytes % 27.3 Monocytes % 9.7 Eosinophils % 0.6 Basophils % 0.5 Absolute Neutrophils 5.5 Absolute Lymphocytes 2.4 Absolute Monocytes 0.9 Absolute Eosinophils 0.1 Absolute Basophils 0.0 Carbonic Acid 1.30 HCO3/H2CO3 Ratio 20:1 ABG pH 7.41 ABG pCO2 43.3 ABG pO2 161.5 H ABG HCO3 26.5 H ABG O2 Saturation 99.1 H ABG Base Excess 1.5 FiO2 2L Sodium Potassium Chloride Carbon Dioxide Anion Gap BUN Creatinine Est GFR ( Amer) Est GFR (Non-Af Amer) Glucose Lactic Acid Calcium Total Bilirubin AST ALT Alkaline Phosphatase Ammonia Total Protein Albumin Lipase TSH Free T4 Urine Color STRAW Urine Appearance CLEAR Urine pH 6.0 Ur Specific [place] 1.005 Urine Protein NEGATIVE Urine Glucose (UA) NEGATIVE Urine Ketones NEGATIVE Urine Blood NEGATIVE Urine Nitrite NEGATIVE Ur Leukocyte Esterase NEGATIVE Urine WBC (Auto) 1 09/11/17 09/11/17 09/11/17 10:10 10:10 10:10 WBC RBC Hgb Hct MCV MCH MCHC RDW Plt Count Seg Neutrophils % Lymphocytes % Monocytes % Eosinophils % Basophils % Absolute Neutrophils Absolute Lymphocytes Absolute Monocytes Absolute Eosinophils Absolute Basophils Carbonic Acid HCO3/H2CO3 Ratio ABG pH ABG pCO2 ABG pO2 ABG HCO3 ABG O2 Saturation ABG Base Excess FiO2 Sodium 138.8 Potassium 3.4 L D Chloride 107 Carbon Dioxide 26 Anion Gap 6 BUN 6 L Creatinine 0.60 Est GFR ( Amer) > 60 Est GFR (Non-Af Amer) > 60 Glucose 81 Lactic Acid 0.8 Calcium 7.8 L Total Bilirubin 0.4 AST 262 H ALT 253 H Alkaline Phosphatase 50 Ammonia Total Protein 4.8 L Albumin 2.5 L Lipase 26.6 TSH 1.25 Free T4 1.16 Urine Color Urine Appearance Urine pH Ur Specific [place] Urine Protein Urine Glucose (UA) Urine Ketones Urine Blood Urine Nitrite Ur Leukocyte Esterase Urine WBC (Auto) 09/11/17 09/11/17 10:10 17:00 WBC RBC Hgb Hct MCV MCH MCHC RDW Plt Count Seg Neutrophils % Lymphocytes % Monocytes % Eosinophils % Basophils % Absolute Neutrophils Absolute Lymphocytes Absolute Monocytes Absolute Eosinophils Absolute Basophils Carbonic Acid HCO3/H2CO3 Ratio ABG pH ABG pCO2 ABG pO2 ABG HCO3 ABG O2 Saturation ABG Base Excess FiO2 Sodium 140.8 Potassium 3.7 Chloride 109 H Carbon Dioxide 24 Anion Gap 8 BUN 7 Creatinine 0.61 Est GFR ( Amer) > 60 Est GFR (Non-Af Amer) > 60 Glucose 78 Lactic Acid Calcium 8.3 L Total Bilirubin 0.4 AST 239 H ALT 239 H Alkaline Phosphatase 53 Ammonia < 8.7 L Total Protein 5.1 L Albumin 2.7 L Lipase TSH Free T4 Urine Color Urine Appearance Urine pH Ur Specific [place] Urine Protein Urine Glucose (UA) Urine Ketones Urine Blood Urine Nitrite Ur Leukocyte Esterase Urine WBC (Auto) 09/11/17 09/11/17 09/11/17 03:42 10:10 10:10 Creatine Kinase 93104 H 7777 H CK-MB (CK-2) 24.10 H Troponin I < 0.012 NT-Pro-B Natriuret Pep 1280 H 09/11/17 17:00 Creatine Kinase CK-MB (CK-2) 18.90 H Troponin I < 0.012 NT-Pro-B Natriuret Pep Impressions: Head CT 09/10/17 11:22 IMPRESSION: NORMAL BRAIN CT WITHOUT CONTRAST. EVIDENCE OF ACUTE STROKE: NO. Chest X-Ray 09/11/17 00:00 IMPRESSION: NO ACUTE RADIOGRAPHIC FINDING IN THE CHEST. Assessment & Plan - Diagnosis (1) Acute encephalopathy Is this a current diagnosis for this admission?: Yes Plan: supportive care and monitoring. expect to upgrade pt tomorrow off restraint and on to regular med tele floor. (2) Rhabdomyolysis Qualifiers: Rhabdomyolysis type: non-traumatic Qualified Code(s): M62.82 - Rhabdomyolysis Is this a current diagnosis for this admission?: Yes Plan: ivf hydration and supportive care with cardiac monitoring. (3) Schizoaffective disorder Qualifiers: Schizoaffective disorder type: unspecified Qualified Code(s): F25.9 - Schizoaffective disorder, unspecified Is this a current diagnosis for this admission?: Yes Plan: pt to f/u closely with psych due to her overdose of her meds.
--- NOTE | 2017-09-12 18:12 | PDOC PROGRESS REPORT ---
Subjective Progress Note for:: 09/12/17 Subjective:: pt is a 32 y/o female admitted with intoxication of her mental health meds . pt is in four point restraint for safety. pt is arousable but somnolent. 09/12/17 Patient seen today for follow-up of overdose. Patient has been doing better clinically. Agitation has improved slightly. Patient is cooperating and is on only soft restraints as needed for safety. Currently patient is off restraints for trial. Patient answers questions appropriately that she wants to go home. Case discussed with Samm and psych who states patient admitted to this being suicidal attempt. Patient is high risk for suicidal behavior as she was just discharged from an inpatient facility. Once patient is medically cleared and medically stable patient will be admitted to an inpatient psychiatric facility. Reason For Visit: ACUTE TOIC ENCEPHALOPATHY Physical Exam Vital Signs: Temp Pulse Resp BP Pulse Ox 97.3 F 84 21 H 116/66 99 09/12/17 16:00 09/12/17 16:00 09/12/17 16:00 09/12/17 16:00 09/12/17 16:00 Intake & Output 09/11/17 09/12/17 09/13/17 06:59 06:59 06:59 Intake Total 2665 3410 1366 Output Total 2075 4190 1440 Balance 590 -780 -74 Weight 163 lb 5.8 oz 152 lb 12.485 oz General appearance: PRESENT: cooperative Eye exam: PRESENT: EOMI Ear exam: PRESENT: normal external ear exam Respiratory exam: PRESENT: clear to auscultation jordan. ABSENT: accessory muscle use, tachypnea, wheezes Cardiovascular exam: PRESENT: RRR GI/Abdominal exam: PRESENT: soft. ABSENT: distended, firm, guarding, tenderness Neurological exam: PRESENT: alert, awake, CN II-XII grossly intact Psychiatric exam: PRESENT: agitated, anxious Focused psych exam: PRESENT: restlessness Results Laboratory Results: 09/12/17 08:35 09/12/17 08:35 09/11/17 09/12/17 09/12/17 17:00 00:12 03:45 WBC RBC Hgb Hct MCV MCH MCHC RDW Plt Count Seg Neutrophils % Lymphocytes % Monocytes % Eosinophils % Basophils % Absolute Neutrophils Absolute Lymphocytes Absolute Monocytes Absolute Eosinophils Absolute Basophils Sodium 140.8 141.7 143.5 Potassium 3.7 3.5 L 3.5 L Chloride 109 H 110 H 111 H Carbon Dioxide 24 23 24 Anion Gap 8 9 9 BUN 7 7 8 Creatinine 0.61 0.61 0.60 Est GFR ( Amer) > 60 > 60 > 60 Est GFR (Non-Af Amer) > 60 > 60 > 60 Glucose 78 72 L 72 L Calcium 8.3 L 8.0 L 8.1 L Total Bilirubin 0.4 0.5 0.5 AST 239 H 236 H 222 H ALT 239 H 228 H 208 H Alkaline Phosphatase 53 57 55 Total Protein 5.1 L 5.1 L 5.1 L Albumin 2.7 L 2.7 L 2.6 L 09/12/17 09/12/17 08:35 08:35 WBC 7.4 RBC 3.54 L Hgb 11.1 L Hct 32.5 L MCV 92 MCH 31.4 MCHC 34.2 RDW 13.8 Plt Count 175 Seg Neutrophils % 54.6 Lymphocytes % 30.1 Monocytes % 11.1 Eosinophils % 3.1 Basophils % 1.1 Absolute Neutrophils 4.1 Absolute Lymphocytes 2.2 Absolute Monocytes 0.8 Absolute Eosinophils 0.2 Absolute Basophils 0.1 Sodium 141.9 Potassium 3.6 Chloride 110 H Carbon Dioxide 22 Anion Gap 10 BUN 9 Creatinine 0.58 Est GFR ( Amer) > 60 Est GFR (Non-Af Amer) > 60 Glucose 66 L Calcium 8.5 Total Bilirubin 0.5 AST 222 H ALT 205 H Alkaline Phosphatase 58 Total Protein 5.4 L Albumin 2.8 L 09/11/17 09/11/17 09/11/17 03:42 10:10 10:10 Creatine Kinase 64862 H 7777 H CK-MB (CK-2) 24.10 H Troponin I < 0.012 NT-Pro-B Natriuret Pep 1280 H 09/11/17 09/12/17 17:00 00:12 Creatine Kinase CK-MB (CK-2) 18.90 H 16.40 H Troponin I < 0.012 < 0.012 NT-Pro-B Natriuret Pep Impressions: Head CT 09/10/17 11:22 IMPRESSION: NORMAL BRAIN CT WITHOUT CONTRAST. EVIDENCE OF ACUTE STROKE: NO. Chest X-Ray 09/11/17 00:00 IMPRESSION: NO ACUTE RADIOGRAPHIC FINDING IN THE CHEST. Chest/Abdomen CTA 09/12/17 08:00 IMPRESSION: 1. NORMAL CTA OF THE CHEST. NO PULMONARY EMBOLI. 2. LINEAR ATELECTASIS IN THE POSTERIOR LUNG BASES. MINIMAL LEFT PLEURAL EFFUSION. Assessment & Plan - Diagnosis (1) Acute encephalopathy Is this a current diagnosis for this admission?: Yes Plan: Resolved (2) Rhabdomyolysis Qualifiers: Rhabdomyolysis type: non-traumatic Qualified Code(s): M62.82 - Rhabdomyolysis Is this a current diagnosis for this admission?: Yes Plan: ivf hydration and supportive care with cardiac monitoring. (3) Schizoaffective disorder Qualifiers: Schizoaffective disorder type: unspecified Qualified Code(s): F25.9 - Schizoaffective disorder, unspecified Is this a current diagnosis for this admission?: Yes
[2017-09-12] MEDS: DEXTROSE 5%-1/2 NORMAL SALINE 1,000 ML IV PRN (18:57)
[2017-09-13 04:05] LABS: HEMATOCRIT 34.2 % (36.0-47.0); HEMOGLOBIN 11.7 g/dL (12.0-15.5); MEAN CORPUSCULAR HEMOGLOBIN 31.2 pg (27.0-33.4); MEAN CORPUSCULAR HGB CONC 34.2 g/dL (32.0-36.0); MEAN CORPUSCULAR VOLUME 91 fl (80-97); PLATELET COUNT 188 10^3/uL (150-450); RED BLOOD COUNT 3.76 10^6/uL (3.72-5.28); RED CELL DISTRIBUTION WIDTH 13.8 % (11.5-14.0); WHITE BLOOD COUNT 8.4 10^3/uL (4.0-10.5)
[2017-09-13 04:19] LABS: ALANINE AMINOTRANSFERASE 183 U/L (9-52); ALBUMIN 2.9 g/dL (3.5-5.0); ALKALINE PHOSPHATASE 49 U/L (38-126); ANION GAP 9 (5-19); ASPARTATE AMINO TRANSFERASE 217 U/L (14-36); BILIRUBIN,DIRECT 0.2 mg/dL (0.0-0.4); BILIRUBIN,TOTAL 0.4 mg/dL (0.2-1.3); BLOOD UREA NITROGEN 7 mg/dL (7-20); CALCIUM 8.5 mg/dL (8.4-10.2); CARBON DIOXIDE 24 mmol/L (22-30); CHLORIDE 111 mmol/L (98-107); GLUCOSE 107 mg/dL (75-110); POTASSIUM 3.4 mmol/L (3.6-5.0); SODIUM 143.6 mmol/L (137-145); TOTAL PROTEIN 5.4 g/dL (6.3-8.2)
[2017-09-13 04:44] LABS: CREATINE KINASE 7103 U/L (30-135)
[2017-09-13] MEDS: HEPARIN SOD (PORCINE) 5,000 UNIT/ML 1 ML SYRINGE SUBCUT SCH ×3 (06:52→22:34)
[2017-09-13] MEDS: DEXTROSE 5%-1/2 NORMAL SALINE 1,000 ML IV PRN (06:53)
[2017-09-13] MEDS: LORAZEPAM INJ 2 MG/1 ML VIAL IV PRN ×3 (11:01→20:36)
--- NOTE | 2017-09-14 00:20 | PDOC PROGRESS REPORT ---
Subjective Progress Note for:: 09/14/17 Subjective:: pt is a 32 y/o female admitted with intoxication of her mental health meds . pt is in four point restraint for safety. pt is arousable but somnolent. 09/12/17 Patient seen today for follow-up of overdose. Patient has been doing better clinically. Agitation has improved slightly. Patient is cooperating and is on only soft restraints as needed for safety. Currently patient is off restraints for trial. Patient answers questions appropriately that she wants to go home. Case discussed with Samm and psych who states patient admitted to this being suicidal attempt. Patient is high risk for suicidal behavior as she was just discharged from an inpatient facility. Once patient is medically cleared and medically stable patient will be admitted to an inpatient psychiatric facility. 09/13/17 pt seen today for f/u. pt is resting in bed and dad is in room. pt is alert and oriented. pt has been out of restraints since yesterday midday. Reason For Visit: ACUTE TOIC ENCEPHALOPATHY Physical Exam Vital Signs: Temp Pulse Resp BP Pulse Ox 97.6 F 91 23 H 110/70 95 09/13/17 23:00 09/13/17 20:00 09/13/17 22:00 09/13/17 21:20 09/13/17 22:00 Intake & Output 09/12/17 09/13/17 09/14/17 06:59 06:59 06:59 Intake Total 3410 3321 1348 Output Total 4190 1885 4200 Balance -780 -2069 -1002 Weight 152 lb 12.485 oz 162 lb 14.746 oz General appearance: PRESENT: no acute distress, cooperative Head exam: PRESENT: atraumatic, normocephalic Eye exam: PRESENT: EOMI Respiratory exam: PRESENT: clear to auscultation jordan. ABSENT: wheezes Cardiovascular exam: PRESENT: RRR Pulses: PRESENT: normal dorsalis pedis pul GI/Abdominal exam: PRESENT: normal bowel sounds, soft. ABSENT: distended, tenderness Neurological exam: PRESENT: alert, awake Psychiatric exam: ABSENT: agitated, anxious Focused psych exam: ABSENT: restlessness Results Laboratory Results: 09/13/17 03:52 09/13/17 03:52 09/13/17 09/13/17 09/13/17 03:52 03:52 03:52 WBC 8.4 RBC 3.76 Hgb 11.7 L Hct 34.2 L MCV 91 MCH 31.2 MCHC 34.2 RDW 13.8 Plt Count 188 Sodium 143.6 Potassium 3.4 L Chloride 111 H Carbon Dioxide 24 Anion Gap 9 BUN 7 Creatinine 0.49 L Est GFR ( Amer) > 60 Est GFR (Non-Af Amer) > 60 Glucose 107 Calcium 8.5 Phosphorus Magnesium 1.6 Total Bilirubin 0.4 AST 217 H ALT 183 H Alkaline Phosphatase 49 Total Protein 5.4 L Albumin 2.9 L 09/13/17 03:52 WBC RBC Hgb Hct MCV MCH MCHC RDW Plt Count Sodium Potassium Chloride Carbon Dioxide Anion Gap BUN Creatinine Est GFR ( Amer) Est GFR (Non-Af Amer) Glucose Calcium Phosphorus 3.4 Magnesium Total Bilirubin AST ALT Alkaline Phosphatase Total Protein Albumin 09/11/17 09/11/17 09/11/17 03:42 10:10 10:10 Creatine Kinase 94066 H 7777 H CK-MB (CK-2) 24.10 H Troponin I < 0.012 NT-Pro-B Natriuret Pep 1280 H 09/11/17 09/12/17 09/13/17 17:00 00:12 03:52 Creatine Kinase 7103 H CK-MB (CK-2) 18.90 H 16.40 H Troponin I < 0.012 < 0.012 NT-Pro-B Natriuret Pep 09/13/17 03:52 Creatine Kinase CK-MB (CK-2) Troponin I NT-Pro-B Natriuret Pep 331 H Impressions: Head CT 09/10/17 11:22 IMPRESSION: NORMAL BRAIN CT WITHOUT CONTRAST. EVIDENCE OF ACUTE STROKE: NO. Chest X-Ray 09/11/17 00:00 IMPRESSION: NO ACUTE RADIOGRAPHIC FINDING IN THE CHEST. Chest/Abdomen CTA 09/12/17 08:00 IMPRESSION: 1. NORMAL CTA OF THE CHEST. NO PULMONARY EMBOLI. 2. LINEAR ATELECTASIS IN THE POSTERIOR LUNG BASES. MINIMAL LEFT PLEURAL EFFUSION. Assessment & Plan - Diagnosis (1) Acute encephalopathy Is this a current diagnosis for this admission?: Yes Plan: Secondary to intentional drug overdose. mental status is cleared and pt is alert and oriented. (2) Rhabdomyolysis Qualifiers: Rhabdomyolysis type: non-traumatic Qualified Code(s): M62.82 - Rhabdomyolysis Is this a current diagnosis for this admission?: Yes Plan: cpk is slowly coming down. (3) Schizoaffective disorder Qualifiers: Schizoaffective disorder type: unspecified Qualified Code(s): F25.9 - Schizoaffective disorder, unspecified Is this a current diagnosis for this admission?: Yes Plan: Starting antidepressants per psychiatry. - Time Time Spent with patient: Less than 15 minutes Anticipated discharge: Acute Rehab Within: within 24 hours - Inpatient Certification Based on my medical assessment, after consideration of the patient's comorbidities, presenting symptoms, or acuity I expect that the services needed warrant INPATIENT care.: Yes I certify that my determination is in accordance with my understanding of Medicare's requirements for reasonable and necessary INPATIENT services [42 CFR 412.3e].: Yes Medical Necessity: Need Close Monitoring Due to Risk of Patient Decompensation - Plan Summary Plan Summary: once pt is medically stable and cleared pt to transfer to psych facility.
[2017-09-14] MEDS: NORMAL SALINE 1000 ML 1,000 ML IV PRN ×3 (00:45→21:32)
[2017-09-14] MEDS: HEPARIN SOD (PORCINE) 5,000 UNIT/ML 1 ML SYRINGE SUBCUT SCH ×3 (06:22→21:32)
[2017-09-14] MEDS: LORAZEPAM INJ 2 MG/1 ML VIAL IV PRN ×3 (10:07→19:56)
[2017-09-14 10:40] LABS: ABSOLUTE BASOPHILS # (AUTO) 0.1 10^3/uL (0.0-0.2); ABSOLUTE EOSINOPHILS # (AUTO) 0.3 10^3/uL (0.0-0.6); ABSOLUTE LYMPHOCYTES (AUTO) 2.2 10^3/uL (0.5-4.7); ABSOLUTE MONOCYTES (AUTO) 0.7 10^3/uL (0.1-1.4); BASOPHILS % (AUTO) 1.1 % (0-2); EOSINOPHILS % (AUTO) 4.3 % (0-6); HEMATOCRIT 36.9 % (36.0-47.0); HEMOGLOBIN 12.6 g/dL (12.0-15.5); LYMPHOCYTES % (AUTO) 29.8 % (13-45); MEAN CORPUSCULAR HEMOGLOBIN 30.9 pg (27.0-33.4); MEAN CORPUSCULAR HGB CONC 34.1 g/dL (32.0-36.0); MEAN CORPUSCULAR VOLUME 91 fl (80-97); MONOCYTES % (AUTO) 9.3 % (3-13); PLATELET COUNT 212 10^3/uL (150-450); RED BLOOD COUNT 4.07 10^6/uL (3.72-5.28); RED CELL DISTRIBUTION WIDTH 13.7 % (11.5-14.0); SEGMENTED NEUTROPHILS % (AUTO) 55.5 % (42-78); TOTAL CELLS COUNTED % (AUTO) 100 %; WHITE BLOOD COUNT 7.3 10^3/uL (4.0-10.5)
[2017-09-14 11:00] LABS: ALANINE AMINOTRANSFERASE 176 U/L (9-52); ALBUMIN 3.1 g/dL (3.5-5.0); ALKALINE PHOSPHATASE 46 U/L (38-126); ANION GAP 10 (5-19); ASPARTATE AMINO TRANSFERASE 276 U/L (14-36); BILIRUBIN,DIRECT 0.2 mg/dL (0.0-0.4); BILIRUBIN,TOTAL 0.3 mg/dL (0.2-1.3); BLOOD UREA NITROGEN 10 mg/dL (7-20); CARBON DIOXIDE 24 mmol/L (22-30); CHLORIDE 110 mmol/L (98-107); GLUCOSE 129 mg/dL (75-110); POTASSIUM 3.8 mmol/L (3.6-5.0); SODIUM 144.3 mmol/L (137-145); TOTAL PROTEIN 5.9 g/dL (6.3-8.2)
[2017-09-14] MEDS ORDERED: BISMUTH SUBSALICYLATE 262 MG TAB.CHEW PO ONE (16:00)
--- NOTE | 2017-09-14 22:56 | PDOC PROGRESS REPORT ---
Subjective Progress Note for:: 09/14/17 Subjective:: pt is a 32 y/o female admitted with intoxication of her mental health meds . pt is in four point restraint for safety. pt is arousable but somnolent. 09/12/17 Patient seen today for follow-up of overdose. Patient has been doing better clinically. Agitation has improved slightly. Patient is cooperating and is on only soft restraints as needed for safety. Currently patient is off restraints for trial. Patient answers questions appropriately that she wants to go home. Case discussed with Samm and psych who states patient admitted to this being suicidal attempt. Patient is high risk for suicidal behavior as she was just discharged from an inpatient facility. Once patient is medically cleared and medically stable patient will be admitted to an inpatient psychiatric facility. 09/13/17 pt seen today for f/u. pt is resting in bed and dad is in room. pt is alert and oriented. pt has been out of restraints since yesterday midday. 09/14/17 She is seen today for follow-up patient is alert awake and oriented sitting upright in bed. Patient is out of restraints. Patient has been tolerating a diet. Patient is smiling and states that her daughter is coming today. Patient denies any suicidal thoughts. Lab work shows improvement in the CPK IV fluids discontinued. Reason For Visit: ACUTE TOIC ENCEPHALOPATHY Physical Exam Vital Signs: Temp Pulse Resp BP Pulse Ox 98 F 64 17 120/69 98 09/14/17 19:50 09/14/17 19:50 09/14/17 19:50 09/14/17 19:50 09/14/17 19:50 Intake & Output 09/13/17 09/14/17 09/15/17 06:59 06:59 06:59 Intake Total 3321 1348 2112 Output Total 5356 2650 700 Balance -2069 -1302 1412 Weight 162 lb 14.746 oz 163 lb 5.8 oz General appearance: PRESENT: no acute distress, cooperative Eye exam: PRESENT: EOMI Respiratory exam: PRESENT: clear to auscultation jordan Cardiovascular exam: PRESENT: RRR GI/Abdominal exam: PRESENT: soft. ABSENT: distended, tenderness Neurological exam: PRESENT: alert, awake, oriented to person, oriented to place , oriented to time, CN II-XII grossly intact Psychiatric exam: PRESENT: appropriate affect, normal mood. ABSENT: agitated, anxious, depressed, flat affect, homicidal ideation, manic, suicidal ideation Results Laboratory Results: 09/14/17 10:17 09/14/17 10:17 09/14/17 09/14/17 10:17 10:17 WBC 7.3 RBC 4.07 Hgb 12.6 Hct 36.9 MCV 91 MCH 30.9 MCHC 34.1 RDW 13.7 Plt Count 212 Seg Neutrophils % 55.5 Lymphocytes % 29.8 Monocytes % 9.3 Eosinophils % 4.3 Basophils % 1.1 Absolute Neutrophils 4.0 Absolute Lymphocytes 2.2 Absolute Monocytes 0.7 Absolute Eosinophils 0.3 Absolute Basophils 0.1 Sodium 144.3 Potassium 3.8 Chloride 110 H Carbon Dioxide 24 Anion Gap 10 BUN 10 Creatinine 0.58 Est GFR ( Amer) > 60 Est GFR (Non-Af Amer) > 60 Glucose 129 H Calcium 9.0 Total Bilirubin 0.3 AST 276 H ALT 176 H Alkaline Phosphatase 46 Total Protein 5.9 L Albumin 3.1 L 09/11/17 09/11/17 09/11/17 03:42 10:10 10:10 Creatine Kinase 45072 H 7777 H CK-MB (CK-2) 24.10 H Troponin I < 0.012 NT-Pro-B Natriuret Pep 1280 H 09/11/17 09/12/17 09/13/17 17:00 00:12 03:52 Creatine Kinase 7103 H CK-MB (CK-2) 18.90 H 16.40 H Troponin I < 0.012 < 0.012 NT-Pro-B Natriuret Pep 09/13/17 03:52 Creatine Kinase CK-MB (CK-2) Troponin I NT-Pro-B Natriuret Pep 331 H Impressions: Head CT 09/10/17 11:22 IMPRESSION: NORMAL BRAIN CT WITHOUT CONTRAST. EVIDENCE OF ACUTE STROKE: NO. Chest X-Ray 09/11/17 00:00 IMPRESSION: NO ACUTE RADIOGRAPHIC FINDING IN THE CHEST. Chest/Abdomen CTA 09/12/17 08:00 IMPRESSION: 1. NORMAL CTA OF THE CHEST. NO PULMONARY EMBOLI. 2. LINEAR ATELECTASIS IN THE POSTERIOR LUNG BASES. MINIMAL LEFT PLEURAL EFFUSION. Assessment & Plan - Diagnosis (1) Rhabdomyolysis Qualifiers: Rhabdomyolysis type: non-traumatic Qualified Code(s): M62.82 - Rhabdomyolysis Is this a current diagnosis for this admission?: Yes Plan: cpk is slowly coming down. Continue IV hydration. Patient is clinically improving. (2) Acute encephalopathy Is this a current diagnosis for this admission?: Yes Plan: Secondary to intentional drug overdose. mental status is cleared and pt is alert and oriented. (3) Schizoaffective disorder Qualifiers: Schizoaffective disorder type: unspecified Qualified Code(s): F25.9 - Schizoaffective disorder, unspecified Is this a current diagnosis for this admission?: Yes - Time Time Spent with patient: Less than 15 minutes - Inpatient Certification Based on my medical assessment, after consideration of the patient's comorbidities, presenting symptoms, or acuity I expect that the services needed warrant INPATIENT care.: Yes I certify that my determination is in accordance with my understanding of Medicare's requirements for reasonable and necessary INPATIENT services [42 CFR 412.3e].: Yes Medical Necessity: Need For Continuous Telemetry Monitoring, Need for Neurological Checks
[2017-09-15] MEDS: LORAZEPAM INJ 2 MG/1 ML VIAL IV PRN ×4 (04:52→20:00)
[2017-09-15] MEDS: HEPARIN SOD (PORCINE) 5,000 UNIT/ML 1 ML SYRINGE SUBCUT SCH ×3 (05:19→22:15)
[2017-09-15] MEDS: NORMAL SALINE 1000 ML 1,000 ML IV PRN ×2 (08:15→20:01)
[2017-09-15 09:18] LABS: ABSOLUTE BASOPHILS # (AUTO) 0.1 10^3/uL (0.0-0.2); ABSOLUTE EOSINOPHILS # (AUTO) 0.4 10^3/uL (0.0-0.6); ABSOLUTE LYMPHOCYTES (AUTO) 2.1 10^3/uL (0.5-4.7); ABSOLUTE MONOCYTES (AUTO) 0.8 10^3/uL (0.1-1.4); ABSOLUTE NEUT (AUTO) 6.5 10^3/uL (1.7-8.2); BASOPHILS % (AUTO) 0.5 % (0-2); EOSINOPHILS % (AUTO) 3.8 % (0-6); HEMATOCRIT 33.3 % (36.0-47.0); HEMOGLOBIN 11.4 g/dL (12.0-15.5); LYMPHOCYTES % (AUTO) 21.5 % (13-45); MEAN CORPUSCULAR HEMOGLOBIN 31.2 pg (27.0-33.4); MEAN CORPUSCULAR HGB CONC 34.1 g/dL (32.0-36.0); MEAN CORPUSCULAR VOLUME 91 fl (80-97); MONOCYTES % (AUTO) 8.4 % (3-13); PLATELET COUNT 229 10^3/uL (150-450); RED BLOOD COUNT 3.65 10^6/uL (3.72-5.28); SEGMENTED NEUTROPHILS % (AUTO) 65.8 % (42-78); TOTAL CELLS COUNTED % (AUTO) 100 %; WHITE BLOOD COUNT 9.9 10^3/uL (4.0-10.5)
[2017-09-15 09:36] LABS: ALANINE AMINOTRANSFERASE 175 U/L (9-52); ALBUMIN 2.9 g/dL (3.5-5.0); ALKALINE PHOSPHATASE 47 U/L (38-126); ANION GAP 10 (5-19); ASPARTATE AMINO TRANSFERASE 269 U/L (14-36); BILIRUBIN,DIRECT 0.2 mg/dL (0.0-0.4); BILIRUBIN,TOTAL 0.2 mg/dL (0.2-1.3); BLOOD UREA NITROGEN 8 mg/dL (7-20); CALCIUM 8.8 mg/dL (8.4-10.2); CARBON DIOXIDE 24 mmol/L (22-30); CHLORIDE 110 mmol/L (98-107); GLUCOSE 84 mg/dL (75-110); PHOSPHORUS 4.1 mg/dL (2.5-4.5); POTASSIUM 3.7 mmol/L (3.6-5.0); SODIUM 144.2 mmol/L (137-145); TOTAL PROTEIN 5.5 g/dL (6.3-8.2)
[2017-09-15 10:00] LABS: CREATINE KINASE 6422 U/L (30-135)
--- NOTE | 2017-09-15 16:44 | PSYCHOLOGICAL NOTE ---
Psych Note - Psych Note Psych Note: Reason for Consult: Overdose Consent permissions: Patient's mother and grandmother Patient is a 32 year old female with schizoaffective disorder presents to the emergency department via EMS after being found unresponsive. EMS states that they found in her trash can empty bottles of Cogentin, Tegretol and Gabapentin. Patient reports that she accidentally took too much medicine on Sunday and was brought to the hospital. Patient denies being currently suicidal as she relies on her shad to get through tough times. Patient states that she has applied to a shad based home ([facility]) in [place] to assist her in getting better. She states that all she needs is her lab work to be faxed to them and they will review her application. food processing plant manager Dwight is currently researching this resource. Patient is alert and orientated to person, place, time and circumstance. Mood is dysphoric. Patient denies suicidal ideations stating she constantly reads her Bible. Patient denies homicidal ideation. Patient thought processes are still slightly effected and are disorganzed at times; however, overall she is able to participate in an organized linear conversation. Clinician did note that patient would respond to questions and then look around the room. Patient has good eye contact. Attention and concentration is good. Insight, judgment, impulse control is currently poor. Diagnosis: 295.70 (F25.0) Schizoaffective disorder; bipolar type per history provided by mother Impression/Plan: Patient is recommended to continue IVC. Patient was discharged out of [facility] on Sunday night and had an overdose on Sunday night. Patient continues to have difficulty with some cognitive processing. Patient will be reevaluated. Dr. Peres was consulted and the care management of this patient; attending physician is in agreement with her conditions and disposition.
--- NOTE | 2017-09-15 16:53 | PDOC PROGRESS REPORT ---
Subjective Progress Note for:: 09/15/17 Subjective:: pt is a 32 y/o female admitted with intoxication of her mental health meds . pt is in four point restraint for safety. pt is arousable but somnolent. 09/12/17 Patient seen today for follow-up of overdose. Patient has been doing better clinically. Agitation has improved slightly. Patient is cooperating and is on only soft restraints as needed for safety. Currently patient is off restraints for trial. Patient answers questions appropriately that she wants to go home. Case discussed with Samm and psych who states patient admitted to this being suicidal attempt. Patient is high risk for suicidal behavior as she was just discharged from an inpatient facility. Once patient is medically cleared and medically stable patient will be admitted to an inpatient psychiatric facility. 09/13/17 pt seen today for f/u. pt is resting in bed and dad is in room. pt is alert and oriented. pt has been out of restraints since yesterday midday. 09/14/17 She is seen today for follow-up patient is alert awake and oriented sitting upright in bed. Patient is out of restraints. Patient has been tolerating a diet. Patient is smiling and states that her daughter is coming today. Patient denies any suicidal thoughts. Lab work shows improvement in the CPK IV fluids discontinued. 09/15/17 Patient seen today for follow-up of overdose. Patient vitals and hospital course has been stable. Labs show a CBC which is normal except for mild anemia which I suspect is dilutional. Liver enzymes still elevated with an AST of 269 and an ALT of 175 CPK of 6422. Reason For Visit: ACUTE TOIC ENCEPHALOPATHY Physical Exam Vital Signs: Temp Pulse Resp BP Pulse Ox 97.7 F 74 16 115/64 98 09/15/17 15:17 09/15/17 15:17 09/15/17 15:17 09/15/17 15:17 09/15/17 15:17 Intake & Output 09/14/17 09/15/17 09/16/17 06:59 06:59 06:59 Intake Total 1348 2432 1000 Output Total 2650 700 Balance -1302 1732 1000 Weight 163 lb 5.8 oz 163 lb 5.8 oz General appearance: PRESENT: no acute distress, cooperative Head exam: PRESENT: atraumatic, normocephalic Eye exam: PRESENT: EOMI Ear exam: PRESENT: normal external ear exam Respiratory exam: PRESENT: clear to auscultation jordan Cardiovascular exam: PRESENT: diastolic murmur, RRR GI/Abdominal exam: PRESENT: normal bowel sounds, soft. ABSENT: distended, guarding, tenderness Neurological exam: PRESENT: alert, awake, oriented to person, oriented to place , oriented to time Psychiatric exam: ABSENT: agitated, anxious, suicidal ideation, unusual affect Results Laboratory Results: 09/15/17 08:50 09/15/17 08:50 09/15/17 09/15/17 08:50 08:50 WBC 9.9 RBC 3.65 L Hgb 11.4 L Hct 33.3 L MCV 91 MCH 31.2 MCHC 34.1 RDW 14.0 Plt Count 229 Seg Neutrophils % 65.8 Lymphocytes % 21.5 Monocytes % 8.4 Eosinophils % 3.8 Basophils % 0.5 Absolute Neutrophils 6.5 Absolute Lymphocytes 2.1 Absolute Monocytes 0.8 Absolute Eosinophils 0.4 Absolute Basophils 0.1 Sodium 144.2 Potassium 3.7 Chloride 110 H Carbon Dioxide 24 Anion Gap 10 BUN 8 Creatinine 0.56 Est GFR ( Amer) > 60 Est GFR (Non-Af Amer) > 60 Glucose 84 Calcium 8.8 Phosphorus 4.1 Magnesium 1.5 L Total Bilirubin 0.2 AST 269 H ALT 175 H Alkaline Phosphatase 47 Total Protein 5.5 L Albumin 2.9 L 09/11/17 09/11/17 09/11/17 03:42 10:10 10:10 Creatine Kinase 04845 H 7777 H CK-MB (CK-2) 24.10 H Troponin I < 0.012 NT-Pro-B Natriuret Pep 1280 H 09/11/17 09/12/17 09/13/17 17:00 00:12 03:52 Creatine Kinase 7103 H CK-MB (CK-2) 18.90 H 16.40 H Troponin I < 0.012 < 0.012 NT-Pro-B Natriuret Pep 09/13/17 09/15/17 03:52 08:50 Creatine Kinase 6422 H CK-MB (CK-2) Troponin I NT-Pro-B Natriuret Pep 331 H Impressions: Head CT 09/10/17 11:22 IMPRESSION: NORMAL BRAIN CT WITHOUT CONTRAST. EVIDENCE OF ACUTE STROKE: NO. Chest X-Ray 09/11/17 00:00 IMPRESSION: NO ACUTE RADIOGRAPHIC FINDING IN THE CHEST. Chest/Abdomen CTA 09/12/17 08:00 IMPRESSION: 1. NORMAL CTA OF THE CHEST. NO PULMONARY EMBOLI. 2. LINEAR ATELECTASIS IN THE POSTERIOR LUNG BASES. MINIMAL LEFT PLEURAL EFFUSION. Assessment & Plan - Diagnosis (1) Rhabdomyolysis Qualifiers: Rhabdomyolysis type: non-traumatic Qualified Code(s): M62.82 - Rhabdomyolysis Is this a current diagnosis for this admission?: Yes Plan: cpk is slowly coming down. Continue IV hydration. Patient is clinically improving. (2) Acute encephalopathy Is this a current diagnosis for this admission?: Yes Plan: Secondary to intentional drug overdose. mental status is cleared and pt is alert and oriented. (3) Schizoaffective disorder Qualifiers: Schizoaffective disorder type: unspecified Qualified Code(s): F25.9 - Schizoaffective disorder, unspecified Is this a current diagnosis for this admission?: Yes Plan: Starting antidepressants per psychiatry. Patient to follow-up with her psychiatrist and for restarting her psych meds. - Time Time Spent with patient: Less than 15 minutes - Inpatient Certification Based on my medical assessment, after consideration of the patient's comorbidities, presenting symptoms, or acuity I expect that the services needed warrant INPATIENT care.: Yes I certify that my determination is in accordance with my understanding of Medicare's requirements for reasonable and necessary INPATIENT services [42 CFR 412.3e].: Yes Medical Necessity: Need For Continuous Telemetry Monitoring, Need for Nebulizer Therapy and Monitoring of Response
[2017-09-15] MEDS ORDERED: CARBOXYMETHYLCELLULOSE SOD 0.5% 0.4 ML DROPERETTE OU SCH (18:00)
[2017-09-15] MEDS ORDERED: SODIUM CHLORIDE 5% OPH SOLN 15 ML OU SCH (18:00)
[2017-09-16] MEDS: HEPARIN SOD (PORCINE) 5,000 UNIT/ML 1 ML SYRINGE SUBCUT SCH ×3 (05:10→21:14)
[2017-09-16] MEDS: LORAZEPAM INJ 2 MG/1 ML VIAL IV PRN ×3 (08:15→20:39)
[2017-09-16] MEDS: NORMAL SALINE 1000 ML 1,000 ML IV PRN ×2 (08:20→17:28)
[2017-09-16] MEDS: POLYVINYL ALCOHOL 1.4% OPH SOLN 15 ML OU SCH ×3 (12:25→17:28)
[2017-09-16] MEDS ORDERED: CHLORPROMAZINE HCL INJ 25 MG/1 ML AMPULE IM PRN (17:26)
[2017-09-16] MEDS ORDERED: OLANZAPINE 5 MG TAB.RAPDIS PO ONE (17:30)
--- NOTE | 2017-09-16 21:31 | Progress Note ---
Provider Note Provider Note: Patient seen today for follow-up for her overdose. Patient has clinically improved significantly. Patient continued on IV fluids for rhabdo. Repeat CPK today morning show further improvement to 6422. She denies any acute complaints or any concerns or chest pain shortness of breath. LFT elevation still persists. We will proceed with right upper quadrant ultrasound. Once patient is medically cleared patient is to be transferred to psychiatric. Patient states that she would like to go to [facility].
[2017-09-16] MEDS ORDERED: OLANZAPINE 5 MG TAB.RAPDIS PO SCH (22:00)
[2017-09-16] MEDS ORDERED: OLANZAPINE 5 MG TABLET ONE (23:20)
[2017-09-17] MEDS: NORMAL SALINE 1000 ML 1,000 ML IV PRN (06:01)
[2017-09-17] MEDS: HEPARIN SOD (PORCINE) 5,000 UNIT/ML 1 ML SYRINGE SUBCUT SCH ×2 (06:02→13:56)
--- NOTE | 2017-09-17 08:55 | RADIOLOGY REPORT (SQ) ---
EXAM DESCRIPTION: U/S ABDOMEN COMPLETE W/O DOP COMPLETED DATE/TIME: 09/17/2017 8:39 am REASON FOR STUDY: Overdose/acute hepatitis. COMPARISON: None. TECHNIQUE: Dynamic and static grayscale images acquired of the abdomen and recorded on PACS. Mounikao stan selected color Doppler and spectral images recorded. LIMITATIONS: None. FINDINGS: PANCREAS: No masses. Visualized pancreatic duct normal caliber. LIVER: The liver measures 14.6 cm, normal size. No masses. Echotexture normal. LIVER VASCULATURE: Normal directional flow of the main portal vein and hepatic veins. GALLBLADDER: No stones. The gallbladder wall measures 2.0 mm, normal wall thickness. No pericholecys tic fluid. ULTRASOUND-DETECTED CHANG'S SIGN: Negative. INTRAHEPATIC DUCTS AND COMMON DUCT: CBD measures 3.0 mm in diameter, normal. The intrahepatic ducts normal caliber. No filling defects. INFERIOR VENA CAVA: Normal flow. AORTA: No aneurysm. RIGHT KIDNEY: The right kidney measures 11.0 cm in length, normal size. Normal echogenicity. No solid or suspicious masses. No hydronephrosis. No calcifications. LEFT KIDNEY: The left kidney measures 10.5 cm in length, normal size. Normal echogenicity. No so lid or suspicious masses. No hydronephrosis. No calcifications. SPLEEN: The spleen measures 10.0 cm in length, normal size. No solid masses. PERITONEAL AND PLEURAL SPACES: No ascites or effusions. OTHER: No other significant finding. IMPRESSION: 1. NORMAL ABDOMINAL ULTRASOUND. TECHNICAL DOCUMENTATION: JOB ID: [id number] [employer]- All Rights Reserved Reading location - IP/workstation name: [email or web address]
[2017-09-17] MEDS: POLYVINYL ALCOHOL 1.4% OPH SOLN 15 ML OU SCH ×3 (09:34→17:49)
[2017-09-17] MEDS: BENZTROPINE MESYLATE 1 MG TABLET PO SCH (09:34)
[2017-09-17] MEDS: OLANZAPINE 5 MG TAB.RAPDIS PO SCH ×2 (10:41→21:39)
[2017-09-17] MEDS ORDERED: NORMAL SALINE 1000 ML 1,000 ML IV PRN ×2 (14:05→16:17)
[2017-09-17 16:09] LABS: ABSOLUTE BASOPHILS # (AUTO) 0.1 10^3/uL (0.0-0.2); ABSOLUTE EOSINOPHILS # (AUTO) 0.4 10^3/uL (0.0-0.6); ABSOLUTE LYMPHOCYTES (AUTO) 2.8 10^3/uL (0.5-4.7); ABSOLUTE MONOCYTES (AUTO) 0.7 10^3/uL (0.1-1.4); BASOPHILS % (AUTO) 1.1 % (0-2); EOSINOPHILS % (AUTO) 4.2 % (0-6); HEMATOCRIT 36.9 % (36.0-47.0); HEMOGLOBIN 12.3 g/dL (12.0-15.5); LYMPHOCYTES % (AUTO) 31.4 % (13-45); MEAN CORPUSCULAR HEMOGLOBIN 30.9 pg (27.0-33.4); MEAN CORPUSCULAR HGB CONC 33.4 g/dL (32.0-36.0); MEAN CORPUSCULAR VOLUME 92 fl (80-97); MONOCYTES % (AUTO) 8.1 % (3-13); PLATELET COUNT 305 10^3/uL (150-450); RED CELL DISTRIBUTION WIDTH 14.3 % (11.5-14.0); SEGMENTED NEUTROPHILS % (AUTO) 55.2 % (42-78); TOTAL CELLS COUNTED % (AUTO) 100 %
[2017-09-17 16:35] LABS: BLOOD UREA NITROGEN 15 mg/dL (7-20); CALCIUM 9.3 mg/dL (8.4-10.2); GLUCOSE 88 mg/dL (75-110)
[2017-09-17 16:36] LABS: ALANINE AMINOTRANSFERASE 187 U/L (9-52); ALBUMIN 3.7 g/dL (3.5-5.0); ALKALINE PHOSPHATASE 53 U/L (38-126); ANION GAP 13 (5-19); ASPARTATE AMINO TRANSFERASE 156 U/L (14-36); BILIRUBIN,DIRECT 0.2 mg/dL (0.0-0.4); BILIRUBIN,TOTAL 0.2 mg/dL (0.2-1.3); CARBON DIOXIDE 24 mmol/L (22-30); CHLORIDE 108 mmol/L (98-107); CREATINE KINASE 1450 U/L (30-135); POTASSIUM 4.3 mmol/L (3.6-5.0); SODIUM 145.1 mmol/L (137-145); TOTAL PROTEIN 6.7 g/dL (6.3-8.2)
--- NOTE | 2017-09-17 19:22 | PSYCHOLOGICAL NOTE ---
Psych Note - Psych Note Psych Note: Medication recommendations per [facility]'s contracted psychiatrist, Dr. Letty CHERY are as follows: Add Zyprexa Zydis 5 mg now, then later, daily Add Cogentin 1mg Add Thorazine 50 mg IM every 6 hours as needed
--- NOTE | 2017-09-18 00:01 | PDOC PROGRESS REPORT ---
Subjective Progress Note for:: 09/17/17 Subjective:: pt is a 32 y/o female admitted with intoxication of her mental health meds . pt is in four point restraint for safety. pt is arousable but somnolent. 09/12/17 Patient seen today for follow-up of overdose. Patient has been doing better clinically. Agitation has improved slightly. Patient is cooperating and is on only soft restraints as needed for safety. Currently patient is off restraints for trial. Patient answers questions appropriately that she wants to go home. Case discussed with Samm and psych who states patient admitted to this being suicidal attempt. Patient is high risk for suicidal behavior as she was just discharged from an inpatient facility. Once patient is medically cleared and medically stable patient will be admitted to an inpatient psychiatric facility. 09/13/17 pt seen today for f/u. pt is resting in bed and dad is in room. pt is alert and oriented. pt has been out of restraints since yesterday midday. 09/14/17 She is seen today for follow-up patient is alert awake and oriented sitting upright in bed. Patient is out of restraints. Patient has been tolerating a diet. Patient is smiling and states that her daughter is coming today. Patient denies any suicidal thoughts. Lab work shows improvement in the CPK IV fluids discontinued. 09/15/17 Patient seen today for follow-up of overdose. Patient vitals and hospital course has been stable. Labs show a CBC which is normal except for mild anemia which I suspect is dilutional. Liver enzymes still elevated with an AST of 269 and an ALT of 175 CPK of 6422. 09/16/2017 Please see separate note. 09/17/2017. Patient seen today for follow-up we will repeat labs for her elevated CPK should follow resolution. Patient does not have any complaints of myalgia. Patient presents forms for a particular facility that her and her family are interested. Blood work on that paperwork has already been ordered for tomorrow morning. Discussed with with patient that once she is medically stable we will discuss with psychiatry and plan for discharge placement. Labs today show resolving of the CPK therefore normal saline rate is continued at 100 and increase is not needed. Expect patient to be ready to be discharged tomorrow, although patient is medically stable patient does not medically cleared for discharge. Currently lab work and vitals are all stabilizing and are improving. Once CPK is normal consider for discharge to inpatient psychiatric facility for suicidal attempt. Labs- Last Values WBC 9.0 10^3/uL (4.0-10.5) 09/17/17 15:36 RBC 4.00 10^6/uL (3.72-5.28) 09/17/17 15:36 Hgb 12.3 g/dL (12.0-15.5) 09/17/17 15:36 Hct 36.9 % (36.0-47.0) 09/17/17 15:36 MCV 92 fl (80-97) 09/17/17 15:36 MCH 30.9 pg (27.0-33.4) 09/17/17 15:36 MCHC 33.4 g/dL (32.0-36.0) 09/17/17 15:36 RDW 14.3 % (11.5-14.0) H 09/17/17 15:36 Plt Count 305 10^3/uL (150-450) 09/17/17 15:36 Seg Neutrophils % 55.2 % (42-78) 09/17/17 15:36 Lymphocytes % 31.4 % (13-45) 09/17/17 15:36 Monocytes % 8.1 % (3-13) 09/17/17 15:36 Eosinophils % 4.2 % (0-6) 09/17/17 15:36 Basophils % 1.1 % (0-2) 09/17/17 15:36 Absolute Neutrophils 5.0 10^3/uL (1.7-8.2) 09/17/17 15:36 Absolute Lymphocytes 2.8 10^3/uL (0.5-4.7) 09/17/17 15:36 Absolute Monocytes 0.7 10^3/uL (0.1-1.4) 09/17/17 15:36 Absolute Eosinophils 0.4 10^3/uL (0.0-0.6) 09/17/17 15:36 Absolute Basophils 0.1 10^3/uL (0.0-0.2) 09/17/17 15:36 APTT 31.9 SEC (23.5-35.8) 09/11/17 10:10 D-Dimer 1.36 ug/mL (0.00-0.50) H 09/11/17 10:10 Carbonic Acid 1.30 mmol/L (1.05-1.35) 09/11/17 09:55 HCO3/H2CO3 Ratio 20:1 09/11/17 09:55 ABG pH 7.41 (7.35-7.45) 09/11/17 09:55 ABG pCO2 43.3 mmHg (35-45) 09/11/17 09:55 ABG pO2 161.5 mmHg (80-100) H 09/11/17 09:55 ABG HCO3 26.5 mmol/L (20-26) H 09/11/17 09:55 ABG Total CO2 27.9 mmol/L (21-25) H 09/11/17 09:55 ABG O2 Saturation 99.1 % (94-98) H 09/11/17 09:55 ABG Base Excess 1.5 mmol/L 09/11/17 09:55 VBG pH 7.28 (7.30-7.42) L 09/10/17 10:53 VBG pCO2 44.0 mmHg (35-63) 09/10/17 10:53 VBG HCO3 20.1 mmol/L (20-32) 09/10/17 10:53 VBG Base Excess -6.3 mmol/L 09/10/17 10:53 FiO2 2L 09/11/17 09:55 Sodium 145.1 mmol/L (137-145) H 09/17/17 15:36 Potassium 4.3 mmol/L (3.6-5.0) 09/17/17 15:36 Chloride 108 mmol/L (98-107) H 09/17/17 15:36 Carbon Dioxide 24 mmol/L (22-30) 09/17/17 15:36 Anion Gap 13 (5-19) 09/17/17 15:36 BUN 15 mg/dL (7-20) 09/17/17 15:36 Creatinine 0.77 mg/dL (0.52-1.25) 09/17/17 15:36 Est GFR ( Amer) > 60 (>60) 09/17/17 15:36 Est GFR (Non-Af Amer) > 60 (>60) 09/17/17 15:36 Glucose 88 mg/dL (75-110) 09/17/17 15:36 Hemoglobin A1c % 5.4 % (4.7-6.0) 09/11/17 10:10 Lactic Acid 0.8 mmol/L (0.7-2.1) 09/11/17 10:10 Calcium 9.3 mg/dL (8.4-10.2) 09/17/17 15:36 Phosphorus 4.1 mg/dL (2.5-4.5) 09/15/17 08:50 Magnesium 1.5 mg/dL (1.6-2.3) L 09/15/17 08:50 Total Bilirubin 0.2 mg/dL (0.2-1.3) 09/17/17 15:36 Direct Bilirubin 0.2 mg/dL (0.0-0.4) 09/17/17 15:36 Neonat Total Bilirubin Not Reportable 09/17/17 15:36 Neonat Direct Bilirubin Not Reportable 09/17/17 15:36 Neonat Indirect Bili Not Reportable 09/17/17 15:36 AST 156 U/L (14-36) H 09/17/17 15:36 ALT 187 U/L (9-52) H 09/17/17 15:36 Alkaline Phosphatase 53 U/L (38-126) 09/17/17 15:36 Ammonia < 8.7 umol/L (9-33) L 09/11/17 10:10 Creatine Kinase 1450 U/L (30-135) H 09/17/17 15:36 CK-MB (CK-2) 7.20 ng/mL (<4.55) H 09/16/17 04:07 Troponin I < 0.012 ng/mL 09/12/17 00:12 NT-Pro-B Natriuret Pep 331 pg/mL (<125) H 09/13/17 03:52 Total Protein 6.7 g/dL (6.3-8.2) 09/17/17 15:36 Albumin 3.7 g/dL (3.5-5.0) 09/17/17 15:36 Lipase 26.6 U/L (23-300) 09/11/17 10:10 TSH 1.25 uIU/mL (0.47-4.68) 09/11/17 10:10 Free T4 1.16 ng/dL (0.78-2.19) 09/11/17 10:10 Serum HCG, Qual NEGATIVE (NEGATIVE) 09/10/17 10:53 Urine Color STRAW 09/11/17 09:55 Urine Appearance CLEAR 09/11/17 09:55 Urine pH 6.0 (5.0-9.0) 09/11/17 09:55 Ur Specific [place] 1.005 09/11/17 09:55 Urine Protein NEGATIVE mg/dL (NEGATIVE) 09/11/17 09:55 Urine Glucose (UA) NEGATIVE mg/dL (NEGATIVE) 09/11/17 09:55 Urine Ketones NEGATIVE mg/dL (NEGATIVE) 09/11/17 09:55 Urine Blood NEGATIVE (NEGATIVE) 09/11/17 09:55 Urine Nitrite NEGATIVE (NEGATIVE) 09/11/17 09:55 Urine Bilirubin NEGATIVE (NEGATIVE) 09/11/17 09:55 Urine Urobilinogen NEGATIVE mg/dL (<2.0) 09/11/17 09:55 Ur Leukocyte Esterase NEGATIVE (NEGATIVE) 09/11/17 09:55 Urine WBC (Auto) 1 /HPF 09/11/17 09:55 Urine RBC (Auto) 1 /HPF 09/10/17 11:20 Squamous Epi Cells Auto <1 /HPF 09/11/17 09:55 Amorphous Sediment Auto TRACE /HPF 09/10/17 11:20 Urine Mucus (Auto) RARE /LPF 09/11/17 09:55 Urine Ascorbic Acid NEGATIVE (NEGATIVE) 09/11/17 09:55 Salicylates < 1.0 mg/dL (2.0-20.0) L 09/10/17 10:53 Urine Opiates Screen NEGATIVE 09/10/17 11:20 Urine Methadone Screen NEGATIVE 09/10/17 11:20 Acetaminophen < 10 ug/mL (10-30) L 09/10/17 10:53 Ur Barbiturates Screen NEGATIVE 09/10/17 11:20 Carbamazepine 7.5 ug/mL (4.0-12.0) 09/11/17 14:00 Ur Phencyclidine Scrn NEGATIVE 09/10/17 11:20 Ur Amphetamines Screen NEGATIVE 09/10/17 11:20 U Benzodiazepines Scrn NEGATIVE 09/10/17 11:20 Urine Cocaine Screen NEGATIVE 09/10/17 11:20 U Marijuana (THC) Screen NEGATIVE 09/10/17 11:20 Serum Alcohol < 10 mg/dL (NONE DETECTED) 09/10/17 10:53 C. difficile Tox (PCR) NEGATIVE (NEGATIVE) 09/15/17 10:40 Reason For Visit: ACUTE TOIC ENCEPHALOPATHY Physical Exam Vital Signs: Temp Pulse Resp BP Pulse Ox 98.2 F 70 18 99/52 L 97 09/17/17 23:52 09/17/17 23:52 09/17/17 23:52 09/17/17 23:52 09/17/17 23:52 Intake & Output 09/16/17 09/17/17 09/18/17 06:59 06:59 06:59 Intake Total 4091 2953 1773 Output Total 600 Balance 4091 2353 1773 Weight 157 lb 13.616 oz 158 lb 4.67 oz General appearance: PRESENT: no acute distress, cooperative. ABSENT: obese Head exam: PRESENT: atraumatic, normocephalic Eye exam: PRESENT: EOMI Ear exam: PRESENT: normal external ear exam Respiratory exam: PRESENT: clear to auscultation jordan Cardiovascular exam: PRESENT: RRR GI/Abdominal exam: PRESENT: normal bowel sounds, soft. ABSENT: distended, tenderness Neurological exam: PRESENT: alert, awake, oriented to person, oriented to place , oriented to time, CN II-XII grossly intact Results Laboratory Results: 09/17/17 15:36 09/17/17 15:36 09/17/17 09/17/17 15:36 15:36 WBC 9.0 RBC 4.00 Hgb 12.3 Hct 36.9 MCV 92 MCH 30.9 MCHC 33.4 RDW 14.3 H Plt Count 305 Seg Neutrophils % 55.2 Lymphocytes % 31.4 Monocytes % 8.1 Eosinophils % 4.2 Basophils % 1.1 Absolute Neutrophils 5.0 Absolute Lymphocytes 2.8 Absolute Monocytes 0.7 Absolute Eosinophils 0.4 Absolute Basophils 0.1 Sodium 145.1 H Potassium 4.3 Chloride 108 H Carbon Dioxide 24 Anion Gap 13 BUN 15 Creatinine 0.77 Est GFR ( Amer) > 60 Est GFR (Non-Af Amer) > 60 Glucose 88 Calcium 9.3 Total Bilirubin 0.2 AST 156 H ALT 187 H Alkaline Phosphatase 53 Total Protein 6.7 Albumin 3.7 09/11/17 09/11/17 09/11/17 03:42 10:10 10:10 Creatine Kinase 57446 H 7777 H CK-MB (CK-2) 24.10 H Troponin I < 0.012 NT-Pro-B Natriuret Pep 1280 H 09/11/17 09/12/17 09/13/17 17:00 00:12 03:52 Creatine Kinase 7103 H CK-MB (CK-2) 18.90 H 16.40 H Troponin I < 0.012 < 0.012 NT-Pro-B Natriuret Pep 09/13/17 09/15/17 09/16/17 03:52 08:50 04:07 Creatine Kinase 6422 H CK-MB (CK-2) 7.20 H Troponin I NT-Pro-B Natriuret Pep 331 H 09/17/17 15:36 Creatine Kinase 1450 H CK-MB (CK-2) Troponin I NT-Pro-B Natriuret Pep Impressions: Head CT 09/10/17 11:22 IMPRESSION: NORMAL BRAIN CT WITHOUT CONTRAST. EVIDENCE OF ACUTE STROKE: NO. Chest X-Ray 09/11/17 00:00 IMPRESSION: NO ACUTE RADIOGRAPHIC FINDING IN THE CHEST. Chest/Abdomen CTA 09/12/17 08:00 IMPRESSION: 1. NORMAL CTA OF THE CHEST. NO PULMONARY EMBOLI. 2. LINEAR ATELECTASIS IN THE POSTERIOR LUNG BASES. MINIMAL LEFT PLEURAL EFFUSION. Abdomen Ultrasound 09/17/17 00:00 IMPRESSION: 1. NORMAL ABDOMINAL ULTRASOUND. Assessment & Plan - Diagnosis (1) Rhabdomyolysis Qualifiers: Rhabdomyolysis type: non-traumatic Qualified Code(s): M62.82 - Rhabdomyolysis Is this a current diagnosis for this admission?: Yes Plan: cpk is improving. Continue IV hydration. Patient is clinically improving. (2) Acute encephalopathy Is this a current diagnosis for this admission?: Yes Plan: Secondary to intentional drug overdose. mental status is cleared and pt is alert and oriented. (3) Schizoaffective disorder Qualifiers: Schizoaffective disorder type: unspecified Qualified Code(s): F25.9 - Schizoaffective disorder, unspecified Is this a current diagnosis for this admission?: Yes Plan: Starting antidepressants per psychiatry. Patient to follow-up with her psychiatrist and for restarting her psych meds.
[2017-09-18] MEDS: HEPARIN SOD (PORCINE) 5,000 UNIT/ML 1 ML SYRINGE SUBCUT SCH ×4 (02:08→21:26)
[2017-09-18] MEDS: POLYVINYL ALCOHOL 1.4% OPH SOLN 15 ML OU SCH ×3 (11:04→18:41)
[2017-09-18] MEDS: BENZTROPINE MESYLATE 1 MG TABLET PO SCH (11:04)
[2017-09-18] MEDS: OLANZAPINE 5 MG TAB.RAPDIS PO SCH ×2 (11:04→21:26)
--- NOTE | 2017-09-18 14:23 | Progress Note ---
Provider Note Provider Note: The patient is medically cleared to be discharged to inpatient psych
--- NOTE | 2017-09-18 19:52 | PDOC PROGRESS REPORT ---
Subjective Progress Note for:: 09/18/17 Subjective:: The patient is up ambulating in her room. She is hopeful that psychiatry may release her today. I spoke to psychiatry later in the day and they are not going to release her involuntary commitment. She is going to require inpatient psychiatric care at discharge. I have informed the psychiatry service that the patient is now medically stable for discharge to an inpatient unit. The patient herself denies fever chills. No chest pain, shortness of breath or cough. No nausea vomiting or diarrhea. No urinary complaints. Reason For Visit: ACUTE TOIC ENCEPHALOPATHY Physical Exam Vital Signs: Temp Pulse Resp BP Pulse Ox 98.3 F 64 16 111/53 L 99 09/18/17 15:46 09/18/17 15:46 09/18/17 15:46 09/18/17 15:46 09/18/17 15:46 Intake & Output 09/17/17 09/18/17 09/19/17 06:59 06:59 06:59 Intake Total 2953 2789 1181 Output Total 600 1000 Balance 2353 1789 1181 Weight 71.8 kg 71.6 kg General appearance: PRESENT: no acute distress, well-developed, well-nourished Head exam: PRESENT: atraumatic, normocephalic Eye exam: PRESENT: conjunctiva pink, EOMI, PERRLA. ABSENT: scleral icterus Ear exam: PRESENT: normal external ear exam Mouth exam: PRESENT: moist, tongue midline Respiratory exam: PRESENT: clear to auscultation jordan. ABSENT: rales, rhonchi, wheezes Cardiovascular exam: PRESENT: RRR. ABSENT: diastolic murmur, rubs, systolic murmur GI/Abdominal exam: PRESENT: normal bowel sounds, soft. ABSENT: distended, guarding, mass, organolmegaly, rebound, tenderness Rectal exam: PRESENT: deferred Extremities exam: PRESENT: full ROM. ABSENT: calf tenderness, clubbing, pedal edema Musculoskeletal exam: PRESENT: ambulatory Neurological exam: PRESENT: alert, awake, oriented to person, oriented to place , oriented to time, oriented to situation, CN II-XII grossly intact. ABSENT: motor sensory deficit Skin exam: PRESENT: dry, intact, warm. ABSENT: cyanosis, rash Results Laboratory Results: 09/17/17 15:36 09/17/17 15:36 09/11/17 09/11/17 09/11/17 03:42 10:10 10:10 Creatine Kinase 34721 H 7777 H CK-MB (CK-2) 24.10 H Troponin I < 0.012 NT-Pro-B Natriuret Pep 1280 H 09/11/17 09/12/17 09/13/17 17:00 00:12 03:52 Creatine Kinase 7103 H CK-MB (CK-2) 18.90 H 16.40 H Troponin I < 0.012 < 0.012 NT-Pro-B Natriuret Pep 09/13/17 09/15/17 09/16/17 03:52 08:50 04:07 Creatine Kinase 6422 H CK-MB (CK-2) 7.20 H Troponin I NT-Pro-B Natriuret Pep 331 H 09/17/17 15:36 Creatine Kinase 1450 H CK-MB (CK-2) Troponin I NT-Pro-B Natriuret Pep Impressions: Head CT 09/10/17 11:22 IMPRESSION: NORMAL BRAIN CT WITHOUT CONTRAST. EVIDENCE OF ACUTE STROKE: NO. Chest X-Ray 09/11/17 00:00 IMPRESSION: NO ACUTE RADIOGRAPHIC FINDING IN THE CHEST. Chest/Abdomen CTA 09/12/17 08:00 IMPRESSION: 1. NORMAL CTA OF THE CHEST. NO PULMONARY EMBOLI. 2. LINEAR ATELECTASIS IN THE POSTERIOR LUNG BASES. MINIMAL LEFT PLEURAL EFFUSION. Abdomen Ultrasound 09/17/17 00:00 IMPRESSION: 1. NORMAL ABDOMINAL ULTRASOUND. Assessment & Plan - Diagnosis (1) Acute encephalopathy Is this a current diagnosis for this admission?: Yes Plan: Secondary to drug overdose. Resolved (2) Intentional drug overdose Is this a current diagnosis for this admission?: Yes Plan: This was an intentional drug overdose. She is going to require inpatient psychiatric treatment at discharge. (3) Rhabdomyolysis Is this a current diagnosis for this admission?: Yes Plan: Improving. She has lost her IV access today. Her CK level is less than 1000. The patient has no muscle pain anymore. I have encouraged her to drink quite a bit of water. Her rhabdomyolysis is improving. (4) Schizoaffective disorder Is this a current diagnosis for this admission?: Yes Plan: She will require inpatient psychiatric treatment at discharge. (5) Hyperkalemia Is this a current diagnosis for this admission?: Yes Plan: Resolved (6) Hypokalemia Is this a current diagnosis for this admission?: Yes Plan: Repleted and resolved (7) Elevated liver function tests Is this a current diagnosis for this admission?: Yes Plan: I suspect this is due to drug-induced liver injury. The provider yesterday ordered a hepatitis panel, HIV and RPR. She has had an abdominal ultrasound which was unremarkable. Her liver function tests are trending downwards (8) Hypomagnesemia Is this a current diagnosis for this admission?: Yes Plan: Repleted - Time Time Spent with patient: 25-34 minutes - Inpatient Certification Medical Necessity: Other - Inpatient hospitalization remains necessary for disposition. The patient is medically stable for discharge to an inpatient psychiatric unit as soon as a bed is found.
[2017-09-19 05:20] LABS: ABSOLUTE BASOPHILS # (AUTO) 0.1 10^3/uL (0.0-0.2); ABSOLUTE EOSINOPHILS # (AUTO) 0.4 10^3/uL (0.0-0.6); ABSOLUTE MONOCYTES (AUTO) 0.8 10^3/uL (0.1-1.4); ABSOLUTE NEUT (AUTO) 3.5 10^3/uL (1.7-8.2); BASOPHILS % (AUTO) 1.3 % (0-2); EOSINOPHILS % (AUTO) 5.1 % (0-6); HEMATOCRIT 37.1 % (36.0-47.0); HEMOGLOBIN 12.5 g/dL (12.0-15.5); LYMPHOCYTES % (AUTO) 38.7 % (13-45); MEAN CORPUSCULAR HEMOGLOBIN 30.8 pg (27.0-33.4); MEAN CORPUSCULAR HGB CONC 33.8 g/dL (32.0-36.0); MEAN CORPUSCULAR VOLUME 91 fl (80-97); MONOCYTES % (AUTO) 10.1 % (3-13); PLATELET COUNT 290 10^3/uL (150-450); RED BLOOD COUNT 4.07 10^6/uL (3.72-5.28); RED CELL DISTRIBUTION WIDTH 14.6 % (11.5-14.0); SEGMENTED NEUTROPHILS % (AUTO) 44.8 % (42-78); TOTAL CELLS COUNTED % (AUTO) 100 %; WHITE BLOOD COUNT 7.7 10^3/uL (4.0-10.5)
[2017-09-19] MEDS: HEPARIN SOD (PORCINE) 5,000 UNIT/ML 1 ML SYRINGE SUBCUT SCH ×2 (05:43→13:20)
[2017-09-19 05:47] LABS: ANION GAP 12 (5-19); BLOOD UREA NITROGEN 17 mg/dL (7-20); CALCIUM 9.5 mg/dL (8.4-10.2); CARBON DIOXIDE 24 mmol/L (22-30); CHLORIDE 107 mmol/L (98-107); CREATINE KINASE 511 U/L (30-135); GLUCOSE 86 mg/dL (75-110); POTASSIUM 4.5 mmol/L (3.6-5.0)
[2017-09-19 06:38] LABS: HEPATITIS A AB IGM Negative (Negative); HEPATITIS B CORE AB IGM Negative (Negative); HEPATITS B SURFACE ANTIGEN Negative (Negative)
[2017-09-19 07:34] LABS: HEPATITIS C VIRUS ANTIBODY <0.1 s/co ratio (0.0-0.9)
[2017-09-19] MEDS: POLYVINYL ALCOHOL 1.4% OPH SOLN 15 ML OU SCH (09:47)
[2017-09-19] MEDS: OLANZAPINE 5 MG TAB.RAPDIS PO SCH (09:48)
[2017-09-19] MEDS: BENZTROPINE MESYLATE 1 MG TABLET PO SCH (09:48)
[2017-09-19 12:14] VITALS: BP 114/64
--- NOTE | 2017-09-19 13:26 | PDOC DISCHARGE SUMMARY ---
General - Admit/Disc Date/PCP Admission Date/Primary Care Provider: 09/10/17 15:00 Discharge Date: 09/19/17 - Discharge Diagnosis (1) Acute encephalopathy Is this a current diagnosis for this admission?: Yes Summary: Secondary to drug overdose. Resolved (2) Intentional drug overdose Is this a current diagnosis for this admission?: Yes Summary: She will be transferred to inpatient psych at [facility] (3) Rhabdomyolysis Is this a current diagnosis for this admission?: Yes Summary: She was initially hydrated with IV normal saline. Her rhabdomyolysis is greatly improved and resolving. Continue to push fluids (4) Schizoaffective disorder Is this a current diagnosis for this admission?: Yes Summary: She will be transitioned to inpatient psych in [place] (5) Hyperkalemia Is this a current diagnosis for this admission?: Yes Summary: Resolved (6) Hypokalemia Is this a current diagnosis for this admission?: Yes Summary: Repleted and resolved (7) Elevated liver function tests Is this a current diagnosis for this admission?: Yes Summary: Likely secondary to drug-induced liver injury due to her overdose. Hepatitis panels as well as HIV and RPR are pending as of the time of this dictation. We will get in touch with the patient if he should become positive. She did have an unremarkable right upper quadrant ultrasound. (8) Hypomagnesemia Is this a current diagnosis for this admission?: Yes Summary: Repleted and resolved - Additional Information Resuscitation Status: Full Code Discharge Diet: Regular Discharge Activity: Activity As Tolerated, Balance Activity w/Rest, Slowly Increase Activity Home Medications: Benztropine Mesylate [Cogentin 1 mg Tablet] 1 mg PO DAILY tablet 09/19/17 Chlorpromazine HCl [Thorazine Inj 25 mg/1 ml Ampule] 50 mg IM Q6HP PRN ampul Olanzapine [Zyprexa Zydis 5 mg Odt Tablet] 5 mg PO Q12 tab.rapdis 09/19/17 Polyvinyl Alcohol [Liquitears 1.4% Ophth Soln 15 ml] 1 drop OU TID bottle 09/19 History of Present Illness History of Present Illness: The patient is a 32-year-old female with a past medical history significant for schizoaffective disorder and depression. She was brought to the emergency room via EMS after being found unresponsive at home. At the time of admission the patient's mother informed the staff that she was recently discharged from [facility] inpatient psych. She was diagnosed with schizoaffective disorder and her medication regimen had been recently adjusted. The patient reportedly improved after medication changes and she was discharged from [facility] 3 days prior to admission. The patient's mom states that she stayed with her grandmother the night that this drug overdose happened. The patient did tell her mother that she had been having hallucinations for 2 days prior. There were multiple empty bottles with her phone found in the room to include carbamazepine, duloxetine, benztropine and Neurontin. In the emergency room the patient was noted to have a [place] Coma Score of 6. Initially the plan was to intubate her but she began to wake up. Her she was found to have evidence of rhabdomyolysis. She was treated with normal saline and monitored quite closely. She had elevated liver function test which have improved somewhat since the time of admission. She was eventually moved out of the ICU and her rhabdomyolysis has almost totally resolved. Yesterday she was medically cleared to go to inpatient psych. I was notified by the discharge planners that she has been accepted back to [facility] at [facility]. She will be transferred there today in stable condition. Physical Exam Vital Signs: Temp Pulse Resp BP Pulse Ox 98.4 F 89 17 114/64 100 09/19/17 11:12 09/19/17 11:12 09/19/17 11:12 09/19/17 11:12 09/19/17 11:12 Intake & Output 09/18/17 09/19/17 09/20/17 06:59 06:59 06:59 Intake Total 2789 1331 Output Total 1000 300 Balance 1789 1031 Weight 71.6 kg 69.9 kg General appearance: PRESENT: no acute distress, well-developed, well-nourished Head exam: PRESENT: atraumatic, normocephalic Eye exam: PRESENT: conjunctiva pink, EOMI, PERRLA. ABSENT: scleral icterus Ear exam: PRESENT: normal external ear exam Mouth exam: PRESENT: moist, tongue midline Neck exam: ABSENT: carotid bruit, JVD, lymphadenopathy, thyromegaly Respiratory exam: PRESENT: clear to auscultation jordan. ABSENT: rales, rhonchi, wheezes Cardiovascular exam: PRESENT: RRR. ABSENT: diastolic murmur, rubs, systolic murmur GI/Abdominal exam: PRESENT: normal bowel sounds, soft. ABSENT: distended, guarding, mass, organolmegaly, rebound, tenderness Rectal exam: PRESENT: deferred Extremities exam: PRESENT: full ROM. ABSENT: calf tenderness, clubbing, pedal edema Neurological exam: PRESENT: alert, awake, oriented to person, oriented to place , oriented to time, oriented to situation, CN II-XII grossly intact. ABSENT: motor sensory deficit Psychiatric exam: PRESENT: unusual affect. ABSENT: homicidal ideation, suicidal ideation Skin exam: PRESENT: dry, intact, warm. ABSENT: cyanosis, rash Results Laboratory Results: 09/19/17 04:23 09/19/17 04:23 09/19/17 09/19/17 04:23 04:23 WBC 7.7 RBC 4.07 Hgb 12.5 Hct 37.1 MCV 91 MCH 30.8 MCHC 33.8 RDW 14.6 H Plt Count 290 Seg Neutrophils % 44.8 Lymphocytes % 38.7 Monocytes % 10.1 Eosinophils % 5.1 Basophils % 1.3 Absolute Neutrophils 3.5 Absolute Lymphocytes 3.0 Absolute Monocytes 0.8 Absolute Eosinophils 0.4 Absolute Basophils 0.1 Sodium 143.0 Potassium 4.5 Chloride 107 Carbon Dioxide 24 Anion Gap 12 BUN 17 Creatinine 0.67 Est GFR ( Amer) > 60 Est GFR (Non-Af Amer) > 60 Glucose 86 Calcium 9.5 Magnesium 2.0 09/11/17 09/11/17 09/11/17 03:42 10:10 10:10 Creatine Kinase 75405 H 7777 H CK-MB (CK-2) 24.10 H Troponin I < 0.012 NT-Pro-B Natriuret Pep 1280 H 09/11/17 09/12/17 09/13/17 17:00 00:12 03:52 Creatine Kinase 7103 H CK-MB (CK-2) 18.90 H 16.40 H Troponin I < 0.012 < 0.012 NT-Pro-B Natriuret Pep 09/13/17 09/15/17 09/16/17 03:52 08:50 04:07 Creatine Kinase 6422 H CK-MB (CK-2) 7.20 H Troponin I NT-Pro-B Natriuret Pep 331 H 09/17/17 09/19/17 15:36 04:23 Creatine Kinase 1450 H 511 H CK-MB (CK-2) Troponin I NT-Pro-B Natriuret Pep Impressions: Head CT 09/10/17 11:22 IMPRESSION: NORMAL BRAIN CT WITHOUT CONTRAST. EVIDENCE OF ACUTE STROKE: NO. Chest X-Ray 09/11/17 00:00 IMPRESSION: NO ACUTE RADIOGRAPHIC FINDING IN THE CHEST. Chest/Abdomen CTA 09/12/17 08:00 IMPRESSION: 1. NORMAL CTA OF THE CHEST. NO PULMONARY EMBOLI. 2. LINEAR ATELECTASIS IN THE POSTERIOR LUNG BASES. MINIMAL LEFT PLEURAL EFFUSION. Abdomen Ultrasound 09/17/17 00:00 IMPRESSION: 1. NORMAL ABDOMINAL ULTRASOUND. Qualifiers - * PATIENT BEING DISCHARGED WITH ANY OF THE FOLLOWING DIAGNOSIS: No Plan Time Spent: Greater than 30 Minutes
--- NOTE | 2017-09-19 15:12 | PSYCHOLOGICAL NOTE ---
Psych Note - Psych Note Psych Note: Reason for consult: overdose Consent permissions: Patient's mother and grandmother at bedside per patient's request Patient is a 32 year old female with schizoaffective disorder presents to the emergency department via EMS after being found unresponsive. EMS states that they found in her trash can empty bottles of Cogentin, Tegretol and Gabapentin. Clinician conducted check in with patient Patient disclosed that her mother told her she has a bed with [facility] in [place]. She disclosed that she has been trying to get into the program for the last month. She reports she attempted to kill herself because she was having difficult getting into the program. When asked if the patient currently has been having difficulties with substance abuse she confirms and states the last time she used was May. Patient asked why her medication works when she is around other people but not when she is with her family. Patient is demonstrating continues liable affect and difficulties managing her emotions. Patient is observed becoming agitated and disclosed overwhelming despair with the thought of not being able to go to [facility]. Patient's mother disclosed the patient does not have a bed yet, that [facility] is just where the patient has been trying to get into. She reports that the patient is unable to leave the state without legal permission so if she goes to [place] she will have to receive that permission first. Diagnosis 295.70 (F25.0) schizoaffective disorder; bipolar type per history provided by mother Impression\plan: Patient is recommended to continue under IVC. The patient intentionally overdosed on medications after being frustrated with medication changes and medication not working. Patient is clearly still having difficulty with some cognitive processing. Patient was just released from [facility] on Sunday (09/07/2017). Patient will be reevaluated. Dr. Peres was consulted and the care management this patient; attending physician is agreement with her conditions and disposition
--- NOTE | 2017-09-19 15:14 | PSYCHOLOGICAL NOTE ---
Psych Note - Psych Note Psych Note: Reason for consult: overdose Consent permissions: Patient's mother and grandmother at bedside per patient's request Patient is a 32 year old female with schizoaffective disorder presents to the emergency department via EMS after being found unresponsive. EMS states that they found in her trash can empty bottles of Cogentin, Tegretol and Gabapentin. Diagnosis 295.70 (F25.0) schizoaffective disorder; bipolar type per history provided by mother Impression\plan: Patient is recommended to continue under IVC. The patient intentionally overdosed on medications after being frustrated with medication changes and medication not working. Patient is clearly still having difficulty with some cognitive processing. Patient was just released from [facility] on Sunday (09/07/2017). Patient has been accepted to [facility]; transportation will occur today. Dr. Peres was consulted and the care management this patient; attending physician is agreement with her conditions and disposition
== END 2017-09-19 14:50 | DRG 917 ==
LOC: ER 10:46 → EH 15:00 → ICU 18:13 → 4S 09-15 05:19
PROVIDERS: ADMIT Family Medicine; ATTEND Family Medicine
DX: T42.1X2A Poisoning by iminostilbenes, intentional self-harm, initial encounter (principal); G92 Toxic encephalopathy; M62.82 Rhabdomyolysis; T44.3X2A Poisoning by other parasympatholytics [anticholinergics and antimuscarinics] and spasmolytics, intentional self-harm, initial encounter; T42.6X2A Poisoning by other antiepileptic and sedative-hypnotic drugs, intentional self-harm, initial encounter; Y92.003 Bedroom of unspecified non-institutional (private) residence as the place of occurrence of the external cause; F17.200 Nicotine dependence, unspecified, uncomplicated; F25.0 Schizoaffective disorder, bipolar type; E87.5 Hyperkalemia; E87.6 Hypokalemia; E83.42 Hypomagnesemia; Z78.1 Physical restraint status
CPT/HCPCS: 36415; 70450; 71045; 71275; 76700; 80048; 80053; 80074; 80156; 80307; 81001; 81025; 82140; 82550; 82553; 82803; 83036; 83605; 83690; 83735; 83880; 84100; 84439; 84443; 84484; 84703; 85025; 85027; 85379; 85730; 86592; 86701; 87040; 87493; 93005; 93010; 96361; 96374; 96375; 96376; 99285; J1644; J2060; J2310; J2405; J3490; J7030